=== PATIENT | female | born 1945 | race Caucasian/White ===

== ENCOUNTER 2017-07-15 17:43 | Inpatient (IN) | payer MEDICARE, MEDICAID ==
[~2017-07-15] VITALS: Ht 152.4 cm; Wt 70.0 kg
[2017-07-15 18:32] LABS: BASOPHILS # (AUTO) 0.04 x10^3/uL (0-0.1); BASOPHILS % (AUTO) 1 % (0-1); EOSINOPHILS # (AUTO) 0.11 x10^3/uL (0-0.4); EOSINOPHILS % (AUTO) 2 % (1-7); LYMPHOCYTES # (AUTO) 1.21 x10^3/uL (1-3.4); LYMPHOCYTES % (AUTO) 19 % (22-44); MD NO; MEAN CORPUSCULAR HEMOGLOBIN 33.2 pg (27.0-34.8); MEAN CORPUSCULAR HGB CONC 33.7 g/dL (32.4-35.8); MEAN CORPUSCULAR VOLUME 98.4 fL (80-100); MEAN PLATELET VOLUME 8.7 fL (7.4-10.4); MONOCYTES # (AUTO) 0.54 x10^3/uL (0.2-0.8); MONOCYTES % (AUTO) 8 % (2-9); NEUTROPHILS # (AUTO) 4.65 x10^3/uL (1.8-6.8); NEUTROPHILS % (AUTO) 71 % (42-75); PLATELET COUNT 156 x10^3/uL (130-400); RED BLOOD COUNT 3.57 x10^6/uL (3.82-5.3); RED CELL DISTRIBUTION WIDTH 13.7 % (9.6-15.2)
[2017-07-15 18:41] LABS: ALBUMIN 3.2 g/dL (3.4-5.0); ANION GAP 7 mmol/L (5-15); CALCIUM 8.2 mg/dL (8.5-10.1); CHLORIDE 110 mmol/L (98-107); CREATININE 0.85 mg/dL (0.55-1.02)
[2017-07-15] MEDS ORDERED: HYDROmorphone 1 MG/ML, 1ML ONE (19:24)
[2017-07-15] MEDS ORDERED: HYDROmorphone 1 MG/ML, 1ML IM ONE (19:30)
[2017-07-15] MEDS ORDERED: SODIUM CHLORIDE 0.9% 1,000 ML IV ONE (20:55)
[2017-07-15] MEDS ORDERED: SODIUM CHLORIDE FLUSH 10ML SYR IVF ONE (21:00)
[2017-07-15] MEDS: SODIUM CHLORIDE FLUSH 10ML SYR IVF SCH (21:30)
[2017-07-15] MEDS: HEPARIN 5,000 UNITS/ML, 1ML SQ SCH (21:30)
[2017-07-15] MEDS ORDERED: ONDANSETRON 2MG/ML, 2ML IVPush PRN (21:30)
[2017-07-15] MEDS ORDERED: BISACODYL 10 MG SUPP PR PRN (21:30)
[2017-07-15] MEDS ORDERED: hydrALAzine 20 MG/ML, 1ML IVPush PRN (21:30)
[2017-07-15 23:45] VITALS: BP 174/94
[2017-07-16] MEDS ORDERED: OXYcodone IR 5MG TABLET PO PRN
[2017-07-16] MEDS ORDERED: OXYcodone IR 5MG TABLET ONE (00:02)
[2017-07-16 00:32] LABS: MICROSCOPIC AUTO
[2017-07-16 00:34] LABS: CULTURE INDICATED? YES
[2017-07-16] MEDS: ACETAMINOPHEN 325 MG TABLET PO PRN ×4 (04:14→22:04)
[2017-07-16] MEDS: HEPARIN 5,000 UNITS/ML, 1ML SQ SCH ×3 (05:23→21:20)
[2017-07-16 07:55] VITALS: BP 155/92
[2017-07-16] MEDS: SODIUM CHLORIDE FLUSH 10ML SYR IVF SCH ×2 (08:06→20:42)
[2017-07-16] MEDS: OXYcodone IR 5MG TABLET PO PRN ×2 (08:06→18:02)
[2017-07-16] MEDS: SENNA/DOCUSATE TABLET PO SCH (10:38)
[2017-07-16 14:00] VITALS: BP 142/83
[2017-07-16] MEDS ORDERED: CHOL500050 PO (18:45)
[2017-07-16] MEDS ORDERED: CARB100T4 PO (18:45)
[2017-07-16] MEDS ORDERED: BUPR300T4 PO (18:45)
[2017-07-16] MEDS ORDERED: ENAL20TA PO (18:45)
[2017-07-16] MEDS ORDERED: RALO60TA12 PO (18:45)
[2017-07-16] MEDS ORDERED: LOVA10TA PO (18:45)
[2017-07-16 19:40] VITALS: BP 129/70
[2017-07-17 03:59] VITALS: BP 123/81
[2017-07-17] MEDS: HEPARIN 5,000 UNITS/ML, 1ML SQ SCH ×4 (05:30→21:06)
[2017-07-17] MEDS: SENNA/DOCUSATE TABLET PO SCH (09:00)
[2017-07-17] MEDS ORDERED: ENALAPRIL 20MG TABLET PO SCH (09:00)
[2017-07-17] MEDS: SODIUM CHLORIDE FLUSH 10ML SYR IVF SCH ×2 (09:00→21:00)
[2017-07-17 09:48] VITALS: BP 132/91
[2017-07-17 12:52] VITALS: BP 100/67
[2017-07-17] MEDS: OXYcodone IR 5MG TABLET PO PRN (16:51)
[2017-07-17 18:36] VITALS: BP 115/74
[2017-07-17] MEDS: SULFAMETH./TRIMETHOPRIM DS 800MG/160MG TABLET PO SCH (21:03)
[2017-07-17] MEDS: POLYETHYLENE GLYCOL 17 GM PACKET PO PRN (21:04)
[2017-07-18 00:55] VITALS: BP 108/69
[2017-07-18] MEDS: HEPARIN 5,000 UNITS/ML, 1ML SQ SCH ×3 (05:30→20:53)
[2017-07-18] MEDS: OXYcodone IR 5MG TABLET PO PRN ×2 (06:38→20:52)
[2017-07-18 06:40] VITALS: BP 111/67
[2017-07-18] MEDS: SODIUM CHLORIDE FLUSH 10ML SYR IVF SCH ×2 (09:00→20:58)
[2017-07-18] MEDS: SULFAMETH./TRIMETHOPRIM DS 800MG/160MG TABLET PO SCH ×2 (09:11→20:52)
[2017-07-18] MEDS: ENALAPRIL 20MG TABLET PO SCH (09:11)
[2017-07-18] MEDS: SENNA/DOCUSATE TABLET PO SCH (09:11)
[2017-07-18 14:00] VITALS: BP 110/63
[2017-07-18 18:25] VITALS: BP 104/65
[2017-07-19 00:37] VITALS: BP 124/70
[2017-07-19] MEDS: OXYcodone IR 5MG TABLET PO PRN ×2 (02:41→14:03)
[2017-07-19] MEDS: HEPARIN 5,000 UNITS/ML, 1ML SQ SCH ×3 (05:35→20:52)
[2017-07-19 08:20] VITALS: BP 107/68
[2017-07-19] MEDS: SODIUM CHLORIDE FLUSH 10ML SYR IVF SCH ×3 (09:00→20:51)
[2017-07-19] MEDS: SULFAMETH./TRIMETHOPRIM DS 800MG/160MG TABLET PO SCH ×2 (09:22→20:51)
[2017-07-19] MEDS: POLYETHYLENE GLYCOL 17 GM PACKET PO PRN (09:22)
[2017-07-19] MEDS: ENALAPRIL 20MG TABLET PO SCH (09:22)
[2017-07-19] MEDS: SENNA/DOCUSATE TABLET PO SCH (09:22)
[2017-07-19 14:01] VITALS: BP 113/68
[2017-07-20 00:47] VITALS: BP 122/78
[2017-07-20] MEDS: HEPARIN 5,000 UNITS/ML, 1ML SQ SCH ×3 (04:13→22:59)
[2017-07-20 05:51] LABS: BASOPHILS # (AUTO) 0.04 x10^3/uL (0-0.1); BASOPHILS % (AUTO) 1 % (0-1); EOSINOPHILS # (AUTO) 0.13 x10^3/uL (0-0.4); EOSINOPHILS % (AUTO) 2 % (1-7); LYMPHOCYTES # (AUTO) 1.53 x10^3/uL (1-3.4); LYMPHOCYTES % (AUTO) 28 % (22-44); MD NO; MEAN CORPUSCULAR HEMOGLOBIN 33.2 pg (27.0-34.8); MEAN CORPUSCULAR HGB CONC 33.5 g/dL (32.4-35.8); MEAN PLATELET VOLUME 8.5 fL (7.4-10.4); MONOCYTES % (AUTO) 9 % (2-9); NEUTROPHILS # (AUTO) 3.25 x10^3/uL (1.8-6.8); NEUTROPHILS % (AUTO) 60 % (42-75); PLATELET COUNT 228 x10^3/uL (130-400); RED BLOOD COUNT 3.64 x10^6/uL (3.82-5.3); RED CELL DISTRIBUTION WIDTH 13.9 % (9.6-15.2)
[2017-07-20 06:05] LABS: CHLORIDE 107 mmol/L (98-107)
[2017-07-20 06:23] LABS: ANION GAP 10 mmol/L (5-15); CALCIUM 8.4 mg/dL (8.5-10.1); CREATININE 1.18 mg/dL (0.55-1.02)
[2017-07-20 07:48] VITALS: BP 116/68
[2017-07-20] MEDS: SULFAMETH./TRIMETHOPRIM DS 800MG/160MG TABLET PO SCH (08:31)
[2017-07-20] MEDS: SODIUM CHLORIDE FLUSH 10ML SYR IVF SCH ×2 (08:32→23:02)
[2017-07-20] MEDS: ENALAPRIL 20MG TABLET PO SCH (08:33)
[2017-07-20] MEDS: SENNA/DOCUSATE TABLET PO SCH (08:34)
[2017-07-20] MEDS: OXYcodone IR 5MG TABLET PO PRN (08:37)
[2017-07-20] MEDS ORDERED: SODIUM CHLORIDE 0.9%, 250ML IVBOLUS ONE (13:00)
[2017-07-20] MEDS ORDERED: SODIUM CHLORIDE 0.9% 1,000 ML IV ONE (13:00)
[2017-07-20 13:29] VITALS: BP 99/57
[2017-07-20] MEDS: ACETAMINOPHEN 325 MG TABLET PO PRN (13:29)
[2017-07-20 19:57] VITALS: BP 105/62
[2017-07-20] MEDS ORDERED: ONDANSETRON 2MG/ML, 2ML IVPush PRN (20:00)
[2017-07-20] MEDS ORDERED: hydrALAzine 20 MG/ML, 1ML IVPush PRN (20:00)
[2017-07-20] MEDS ORDERED: BISACODYL 10 MG SUPP PR PRN (20:00)
[2017-07-21 00:50] VITALS: BP 115/64
[2017-07-21] MEDS: ACETAMINOPHEN 325 MG TABLET PO PRN ×2 (01:29→19:45)
[2017-07-21 06:12] LABS: CHLORIDE 107 mmol/L (98-107)
[2017-07-21 06:24] LABS: ANION GAP 7 mmol/L (5-15); CALCIUM 8.7 mg/dL (8.5-10.1); CREATININE 1.03 mg/dL (0.55-1.02)
[2017-07-21 07:54] VITALS: BP 112/63
[2017-07-21] MEDS: ENALAPRIL 20MG TABLET PO SCH (08:03)
[2017-07-21] MEDS: SENNA/DOCUSATE TABLET PO SCH (08:05)
[2017-07-21] MEDS: SODIUM CHLORIDE FLUSH 10ML SYR IVF SCH ×2 (08:06→19:45)
[2017-07-21] MEDS: HEPARIN 5,000 UNITS/ML, 1ML SQ SCH ×2 (10:57→23:09)
[2017-07-21 13:33] VITALS: BP 100/64
[2017-07-21] MEDS: POLYETHYLENE GLYCOL 17 GM PACKET PO PRN (19:45)
[2017-07-21 23:12] VITALS: BP 123/68
[2017-07-22 00:52] VITALS: BP 98/56
[2017-07-22] MEDS: ACETAMINOPHEN 325 MG TABLET PO PRN ×2 (03:50→22:25)
[2017-07-22] MEDS: HEPARIN 5,000 UNITS/ML, 1ML SQ SCH ×2 (06:52→16:03)
[2017-07-22 07:59] VITALS: BP 96/60
[2017-07-22] MEDS: ENALAPRIL 20MG TABLET PO SCH (09:00)
[2017-07-22] MEDS: SODIUM CHLORIDE FLUSH 10ML SYR IVF SCH ×2 (09:52→22:29)
[2017-07-22] MEDS: SENNA/DOCUSATE TABLET PO SCH (09:52)
[2017-07-22 13:24] VITALS: BP 98/66
[2017-07-22 22:00] VITALS: BP 116/74
[2017-07-23 02:33] VITALS: BP 130/75
[2017-07-23] MEDS: HEPARIN 5,000 UNITS/ML, 1ML SQ SCH ×3 (02:39→18:14)
[2017-07-23] MEDS: ACETAMINOPHEN 325 MG TABLET PO PRN ×2 (05:34→21:21)
[2017-07-23 08:07] VITALS: BP 115/72
[2017-07-23] MEDS: ENALAPRIL 20MG TABLET PO SCH (10:45)
[2017-07-23] MEDS: SENNA/DOCUSATE TABLET PO SCH (10:46)
[2017-07-23] MEDS: SODIUM CHLORIDE FLUSH 10ML SYR IVF SCH ×2 (10:47→20:45)
[2017-07-23 14:18] VITALS: BP 93/60
[2017-07-23 20:50] VITALS: BP 104/63
[2017-07-24] MEDS: HEPARIN 5,000 UNITS/ML, 1ML SQ SCH ×3 (03:40→21:00)
[2017-07-24 04:05] VITALS: BP 103/63
[2017-07-24] MEDS: ACETAMINOPHEN 325 MG TABLET PO PRN (05:16)
[2017-07-24 07:44] VITALS: BP 105/66
[2017-07-24] MEDS: ENALAPRIL 20MG TABLET PO SCH (10:48)
[2017-07-24] MEDS: SENNA/DOCUSATE TABLET PO SCH (10:48)
[2017-07-24] MEDS: SODIUM CHLORIDE FLUSH 10ML SYR IVF SCH ×2 (10:48→21:00)
[2017-07-24 12:54] VITALS: BP 96/55
[2017-07-24 19:54] VITALS: BP 100/60
[2017-07-25 02:42] VITALS: BP 128/70
[2017-07-25] MEDS: OXYcodone IR 5MG TABLET PO PRN ×2 (02:58→20:18)
[2017-07-25] MEDS: HEPARIN 5,000 UNITS/ML, 1ML SQ SCH ×3 (05:22→20:04)
[2017-07-25 06:53] VITALS: BP 122/73
[2017-07-25] MEDS: SODIUM CHLORIDE FLUSH 10ML SYR IVF SCH ×2 (09:00→20:03)
[2017-07-25] MEDS: SENNA/DOCUSATE TABLET PO SCH (09:16)
[2017-07-25] MEDS: ENALAPRIL 20MG TABLET PO SCH (09:16)
[2017-07-25 13:10] VITALS: BP 94/62
[2017-07-25 19:18] VITALS: BP 122/76
[2017-07-25] MEDS: POLYETHYLENE GLYCOL 17 GM PACKET PO PRN (20:04)
[2017-07-26 00:05] VITALS: BP 107/68
[2017-07-26] MEDS: OXYcodone IR 5MG TABLET PO PRN (04:36)
[2017-07-26] MEDS: HEPARIN 5,000 UNITS/ML, 1ML SQ SCH ×3 (04:36→21:07)
[2017-07-26 07:10] VITALS: BP 111/67
[2017-07-26] MEDS: SODIUM CHLORIDE FLUSH 10ML SYR IVF SCH ×2 (09:23→21:00)
[2017-07-26] MEDS: SENNA/DOCUSATE TABLET PO SCH (09:23)
[2017-07-26] MEDS: ENALAPRIL 20MG TABLET PO SCH (09:23)
[2017-07-26 15:00] VITALS: BP 104/65
[2017-07-26 18:28] VITALS: BP 95/59
[2017-07-27 01:12] VITALS: BP 119/75
[2017-07-27] MEDS: OXYcodone IR 5MG TABLET PO PRN ×3 (01:15→20:10)
[2017-07-27] MEDS: HEPARIN 5,000 UNITS/ML, 1ML SQ SCH ×4 (04:53→20:01)
[2017-07-27 08:10] VITALS: BP 88/51
[2017-07-27] MEDS ORDERED: SENNA/DOCUSATE TABLET PO SCH (09:00)
[2017-07-27] MEDS: ENALAPRIL 20MG TABLET PO SCH (09:00)
[2017-07-27] MEDS: SODIUM CHLORIDE FLUSH 10ML SYR IVF SCH ×2 (09:08→21:00)
[2017-07-27 13:43] VITALS: BP 122/68
[2017-07-27] MEDS ORDERED: ONDANSETRON 2MG/ML, 2ML IVPush PRN (17:00)
[2017-07-27] MEDS ORDERED: hydrALAzine 20 MG/ML, 1ML IVPush PRN (17:00)
[2017-07-27] MEDS ORDERED: BISACODYL 10 MG SUPP PR PRN (17:00)
[2017-07-27 19:13] VITALS: BP 134/74
[2017-07-28 01:15] VITALS: BP 105/72
[2017-07-28] MEDS: HEPARIN 5,000 UNITS/ML, 1ML SQ SCH ×3 (04:13→21:00)
[2017-07-28 06:08] LABS: PLATELET COUNT 209 x10^3/uL (130-400)
[2017-07-28 06:21] LABS: CHLORIDE 106 mmol/L (98-107)
[2017-07-28 06:38] LABS: ANION GAP 6 mmol/L (5-15); CALCIUM 8.3 mg/dL (8.5-10.1); CREATININE 0.77 mg/dL (0.55-1.02)
[2017-07-28 08:39] VITALS: BP 121/72
[2017-07-28] MEDS ORDERED: SENNA/DOCUSATE TABLET PO SCH (09:00)
[2017-07-28] MEDS: SODIUM CHLORIDE FLUSH 10ML SYR IVF SCH ×2 (09:25→21:00)
[2017-07-28] MEDS: ENALAPRIL 20MG TABLET PO SCH (09:25)
[2017-07-28] MEDS: SENNA/DOCUSATE TABLET PO SCH (09:26)
[2017-07-28 14:19] VITALS: BP 130/74
[2017-07-28 14:22] VITALS: BP 101/64
[2017-07-28 19:36] VITALS: BP 100/57
[2017-07-29 01:11] VITALS: BP 118/72
[2017-07-29 03:21] VITALS: BP 101/55
[2017-07-29] MEDS: HEPARIN 5,000 UNITS/ML, 1ML SQ SCH ×3 (04:42→20:53)
[2017-07-29 07:45] VITALS: BP 112/70
[2017-07-29] MEDS: SENNA/DOCUSATE TABLET PO SCH (08:20)
[2017-07-29] MEDS: AMLODIPINE 2.5 MG TABLET PO SCH (08:20)
[2017-07-29] MEDS: SODIUM CHLORIDE FLUSH 10ML SYR IVF SCH ×2 (08:26→20:53)
[2017-07-29] MEDS: OXYcodone IR 5MG TABLET PO PRN ×3 (08:42→17:47)
[2017-07-29 13:57] VITALS: BP 128/74
[2017-07-29 20:20] VITALS: BP 137/73
[2017-07-30 02:06] VITALS: BP 133/76
[2017-07-30] MEDS: HEPARIN 5,000 UNITS/ML, 1ML SQ SCH ×3 (05:00→22:34)
[2017-07-30 07:31] VITALS: BP 126/74
[2017-07-30] MEDS: SODIUM CHLORIDE FLUSH 10ML SYR IVF SCH ×2 (09:00→21:49)
[2017-07-30] MEDS: SENNA/DOCUSATE TABLET PO SCH (09:00)
[2017-07-30 11:05] VITALS: BP 111/78
[2017-07-30] MEDS: AMLODIPINE 2.5 MG TABLET PO SCH (11:08)
[2017-07-30] MEDS: ACETAMINOPHEN 325 MG TABLET PO PRN (11:18)
[2017-07-30 14:24] VITALS: BP 115/68
[2017-07-30 18:38] VITALS: BP 137/76
[2017-07-31] MEDS: OXYcodone IR 5MG TABLET PO PRN ×3 (00:18→21:34)
[2017-07-31 00:26] VITALS: BP 131/82
[2017-07-31] MEDS: HEPARIN 5,000 UNITS/ML, 1ML SQ SCH ×3 (04:45→21:38)
[2017-07-31 07:15] VITALS: BP 120/69
[2017-07-31] MEDS: SODIUM CHLORIDE FLUSH 10ML SYR IVF SCH ×2 (09:00→21:39)
[2017-07-31] MEDS: SENNA/DOCUSATE TABLET PO SCH (11:15)
[2017-07-31] MEDS: AMLODIPINE 2.5 MG TABLET PO SCH (11:15)
[2017-07-31 14:06] VITALS: BP 122/76
[2017-07-31] MEDS: POLYETHYLENE GLYCOL 17 GM PACKET PO PRN (14:41)
[2017-07-31 18:35] VITALS: BP 120/71
[2017-08-01 00:10] VITALS: BP 113/71
[2017-08-01] MEDS: HEPARIN 5,000 UNITS/ML, 1ML SQ SCH ×3 (04:58→21:44)
[2017-08-01 08:39] VITALS: BP 121/73
[2017-08-01] MEDS: SODIUM CHLORIDE FLUSH 10ML SYR IVF SCH ×2 (09:46→21:43)
[2017-08-01] MEDS: SENNA/DOCUSATE TABLET PO SCH (09:50)
[2017-08-01] MEDS: AMLODIPINE 2.5 MG TABLET PO SCH (09:50)
[2017-08-01] MEDS: POLYETHYLENE GLYCOL 17 GM PACKET PO PRN (10:58)
[2017-08-01] MEDS: OXYcodone IR 5MG TABLET PO PRN (13:37)
[2017-08-01 13:54] VITALS: BP 110/71
[2017-08-01 18:56] VITALS: BP 118/71
[2017-08-02 00:52] VITALS: BP 125/77
[2017-08-02] MEDS: HEPARIN 5,000 UNITS/ML, 1ML SQ SCH ×3 (06:18→21:00)
[2017-08-02 08:30] VITALS: BP 106/71
[2017-08-02] MEDS: SODIUM CHLORIDE FLUSH 10ML SYR IVF SCH ×2 (09:00→21:00)
[2017-08-02] MEDS: AMLODIPINE 2.5 MG TABLET PO SCH (09:00)
[2017-08-02] MEDS: SENNA/DOCUSATE TABLET PO SCH (11:37)
[2017-08-02 12:55] VITALS: BP 103/67
[2017-08-02 19:41] VITALS: BP 135/82
[2017-08-03 04:17] VITALS: BP 104/68
[2017-08-03] MEDS: HEPARIN 5,000 UNITS/ML, 1ML SQ SCH ×3 (04:22→20:57)
[2017-08-03 04:55] LABS: BASOPHILS # (AUTO) 0.05 x10^3/uL (0-0.1); BASOPHILS % (AUTO) 1 % (0-1); EOSINOPHILS # (AUTO) 0.15 x10^3/uL (0-0.4); EOSINOPHILS % (AUTO) 4 % (1-7); LYMPHOCYTES # (AUTO) 1.26 x10^3/uL (1-3.4); LYMPHOCYTES % (AUTO) 35 % (22-44); MD NO; MEAN CORPUSCULAR HEMOGLOBIN 33.5 pg (27.0-34.8); MEAN CORPUSCULAR HGB CONC 33.9 g/dL (32.4-35.8); MEAN CORPUSCULAR VOLUME 98.8 fL (80-100); MEAN PLATELET VOLUME 8.5 fL (7.4-10.4); MONOCYTES # (AUTO) 0.46 x10^3/uL (0.2-0.8); MONOCYTES % (AUTO) 13 % (2-9); NEUTROPHILS % (AUTO) 47 % (42-75); PLATELET COUNT 232 x10^3/uL (130-400); RED BLOOD COUNT 3.34 x10^6/uL (3.82-5.3); RED CELL DISTRIBUTION WIDTH 13.9 % (9.6-15.2)
[2017-08-03 05:08] LABS: ANION GAP 7 mmol/L (5-15); CALCIUM 8.6 mg/dL (8.5-10.1); CHLORIDE 109 mmol/L (98-107)
[2017-08-03 05:10] LABS: CREATININE 0.78 mg/dL (0.55-1.02)
[2017-08-03] MEDS: SODIUM CHLORIDE FLUSH 10ML SYR IVF SCH ×2 (09:00→20:44)
[2017-08-03 09:04] VITALS: BP 113/68
[2017-08-03] MEDS: SENNA/DOCUSATE TABLET PO SCH (09:13)
[2017-08-03] MEDS: AMLODIPINE 2.5 MG TABLET PO SCH (09:13)
[2017-08-03 14:51] VITALS: BP 112/70
[2017-08-03 20:34] VITALS: BP 111/71
[2017-08-03] MEDS: ACETAMINOPHEN 325 MG TABLET PO PRN (20:44)
[2017-08-03] MEDS: POLYETHYLENE GLYCOL 17 GM PACKET PO PRN (20:44)
[2017-08-04] MEDS: ACETAMINOPHEN 325 MG TABLET PO PRN (02:13)
[2017-08-04 02:44] VITALS: BP 108/68
[2017-08-04] MEDS: HEPARIN 5,000 UNITS/ML, 1ML SQ SCH ×3 (05:28→21:25)
[2017-08-04 06:40] VITALS: BP 121/74
[2017-08-04] MEDS: SODIUM CHLORIDE FLUSH 10ML SYR IVF SCH ×2 (09:00→21:00)
[2017-08-04] MEDS: AMLODIPINE 2.5 MG TABLET PO SCH (09:25)
[2017-08-04] MEDS: SENNA/DOCUSATE TABLET PO SCH (09:26)
[2017-08-04 13:28] VITALS: BP 124/74
[2017-08-04 19:26] VITALS: BP 129/74
[2017-08-05 00:18] VITALS: BP 125/73
[2017-08-05] MEDS ORDERED: PNEUMOCOCCAL 23 VACCINE IM-VACC ONE (03:30)
[2017-08-05] MEDS: HEPARIN 5,000 UNITS/ML, 1ML SQ SCH ×3 (05:27→20:58)
[2017-08-05] MEDS: OXYcodone IR 5MG TABLET PO PRN ×2 (08:31→14:47)
[2017-08-05] MEDS: AMLODIPINE 2.5 MG TABLET PO SCH (08:31)
[2017-08-05] MEDS: SENNA/DOCUSATE TABLET PO SCH (08:31)
[2017-08-05] MEDS: SODIUM CHLORIDE FLUSH 10ML SYR IVF SCH (08:32)
[2017-08-05 08:51] VITALS: BP 143/81
[2017-08-05 14:52] VITALS: BP 119/74
[2017-08-05 19:36] VITALS: BP 123/71
[2017-08-06 00:41] VITALS: BP 113/69
[2017-08-06] MEDS: HEPARIN 5,000 UNITS/ML, 1ML SQ SCH ×3 (05:00→21:00)
[2017-08-06 07:45] VITALS: BP 126/72
[2017-08-06] MEDS: SENNA/DOCUSATE TABLET PO SCH (09:22)
[2017-08-06] MEDS: AMLODIPINE 2.5 MG TABLET PO SCH (09:22)
[2017-08-06 13:52] VITALS: BP 120/74
[2017-08-06 19:44] VITALS: BP 115/73
[2017-08-07 02:25] VITALS: BP 110/66
[2017-08-07] MEDS: HEPARIN 5,000 UNITS/ML, 1ML SQ SCH ×3 (05:00→23:13)
[2017-08-07 05:34] LABS: BASOPHILS # (AUTO) 0.03 x10^3/uL (0-0.1); BASOPHILS % (AUTO) 1 % (0-1); EOSINOPHILS # (AUTO) 0.15 x10^3/uL (0-0.4); EOSINOPHILS % (AUTO) 4 % (1-7); LYMPHOCYTES # (AUTO) 1.23 x10^3/uL (1-3.4); LYMPHOCYTES % (AUTO) 32 % (22-44); MD NO; MEAN CORPUSCULAR HEMOGLOBIN 33.3 pg (27.0-34.8); MEAN CORPUSCULAR HGB CONC 33.9 g/dL (32.4-35.8); MEAN CORPUSCULAR VOLUME 98.4 fL (80-100); MEAN PLATELET VOLUME 8.8 fL (7.4-10.4); MONOCYTES # (AUTO) 0.56 x10^3/uL (0.2-0.8); MONOCYTES % (AUTO) 14 % (2-9); NEUTROPHILS # (AUTO) 1.88 x10^3/uL (1.8-6.8); NEUTROPHILS % (AUTO) 49 % (42-75); PLATELET COUNT 191 x10^3/uL (130-400); RED BLOOD COUNT 3.38 x10^6/uL (3.82-5.3)
[2017-08-07 05:46] LABS: ANION GAP 7 mmol/L (5-15); CALCIUM 8.2 mg/dL (8.5-10.1); CHLORIDE 108 mmol/L (98-107)
[2017-08-07 05:48] LABS: CREATININE 0.67 mg/dL (0.55-1.02)
[2017-08-07 07:31] VITALS: BP 132/85
[2017-08-07] MEDS: AMLODIPINE 2.5 MG TABLET PO SCH (09:13)
[2017-08-07] MEDS: SENNA/DOCUSATE TABLET PO SCH (09:13)
[2017-08-07 13:34] VITALS: BP 129/78
[2017-08-07 20:00] VITALS: BP 106/68
[2017-08-08 01:50] VITALS: BP 116/88
[2017-08-08 05:26] LABS: BASOPHILS # (AUTO) 0.03 x10^3/uL (0-0.1); BASOPHILS % (AUTO) 1 % (0-1); EOSINOPHILS # (AUTO) 0.18 x10^3/uL (0-0.4); EOSINOPHILS % (AUTO) 5 % (1-7); LYMPHOCYTES # (AUTO) 1.46 x10^3/uL (1-3.4); LYMPHOCYTES % (AUTO) 36 % (22-44); MD NO; MEAN CORPUSCULAR HEMOGLOBIN 33.3 pg (27.0-34.8); MEAN CORPUSCULAR HGB CONC 33.7 g/dL (32.4-35.8); MEAN CORPUSCULAR VOLUME 98.7 fL (80-100); MEAN PLATELET VOLUME 8.8 fL (7.4-10.4); MONOCYTES # (AUTO) 0.56 x10^3/uL (0.2-0.8); MONOCYTES % (AUTO) 14 % (2-9); NEUTROPHILS # (AUTO) 1.86 x10^3/uL (1.8-6.8); NEUTROPHILS % (AUTO) 46 % (42-75); PLATELET COUNT 206 x10^3/uL (130-400); RED BLOOD COUNT 3.38 x10^6/uL (3.82-5.3)
[2017-08-08 05:34] LABS: ALBUMIN 3.1 g/dL (3.4-5.0); ANION GAP 7 mmol/L (5-15); CALCIUM 8.2 mg/dL (8.5-10.1); CHLORIDE 109 mmol/L (98-107); CREATININE 0.71 mg/dL (0.55-1.02)
[2017-08-08 06:56] VITALS: BP 132/76
[2017-08-08] MEDS: HEPARIN 5,000 UNITS/ML, 1ML SQ SCH ×3 (07:00→23:00)
[2017-08-08] MEDS: SENNA/DOCUSATE TABLET PO SCH (08:23)
[2017-08-08] MEDS: AMLODIPINE 2.5 MG TABLET PO SCH (08:23)
[2017-08-08 14:02] VITALS: BP 131/82
[2017-08-08 19:52] VITALS: BP 119/74
[2017-08-09 01:30] VITALS: BP 113/71
[2017-08-09] MEDS: OXYcodone IR 5MG TABLET PO PRN (01:56)
[2017-08-09] MEDS: POLYETHYLENE GLYCOL 17 GM PACKET PO PRN (01:59)
[2017-08-09] MEDS: HEPARIN 5,000 UNITS/ML, 1ML SQ SCH ×3 (07:00→23:15)
[2017-08-09 07:03] VITALS: BP 138/82
[2017-08-09] MEDS: AMLODIPINE 2.5 MG TABLET PO SCH (08:36)
[2017-08-09] MEDS: SENNA/DOCUSATE TABLET PO SCH (08:37)
[2017-08-09 13:01] VITALS: BP 117/72
[2017-08-09 19:37] VITALS: BP 125/75
[2017-08-10 02:01] VITALS: BP 114/77
[2017-08-10 07:37] VITALS: BP 121/79
[2017-08-10] MEDS: HEPARIN 5,000 UNITS/ML, 1ML SQ SCH ×3 (09:39→23:00)
[2017-08-10] MEDS: AMLODIPINE 2.5 MG TABLET PO SCH (09:40)
[2017-08-10] MEDS: SENNA/DOCUSATE TABLET PO SCH (09:40)
[2017-08-10 14:15] VITALS: BP 122/65
[2017-08-10] MEDS ORDERED: POLYETHYLENE GLYCOL 17 GM PACKET PO PRN (19:30)
[2017-08-10] MEDS ORDERED: BISACODYL 10 MG SUPP PR PRN (19:30)
[2017-08-10] MEDS ORDERED: hydrALAzine 20 MG/ML, 1ML IVPush PRN (19:30)
[2017-08-10] MEDS ORDERED: ACETAMINOPHEN 325 MG TABLET PO PRN (19:30)
[2017-08-10] MEDS ORDERED: ONDANSETRON 2MG/ML, 2ML IVPush PRN (19:30)
[2017-08-10 19:41] VITALS: BP 126/77
[2017-08-11 01:55] VITALS: BP 122/75
[2017-08-11] MEDS: HEPARIN 5,000 UNITS/ML, 1ML SQ SCH ×3 (07:00→23:00)
[2017-08-11] MEDS: AMLODIPINE 2.5 MG TABLET PO SCH (08:52)
[2017-08-11 08:53] VITALS: BP 117/72
[2017-08-11] MEDS: SENNA/DOCUSATE TABLET PO SCH (08:53)
[2017-08-11 14:31] VITALS: BP 127/70
[2017-08-11 19:34] VITALS: BP 114/75
[2017-08-11] MEDS: OXYcodone IR 5MG TABLET PO PRN (20:49)
[2017-08-12 04:00] VITALS: BP 111/71
[2017-08-12 06:15] LABS: BASOPHILS # (AUTO) 0.04 x10^3/uL (0-0.1); BASOPHILS % (AUTO) 1 % (0-1); CHLORIDE 108 mmol/L (98-107); EOSINOPHILS # (AUTO) 0.18 x10^3/uL (0-0.4); EOSINOPHILS % (AUTO) 4 % (1-7); LYMPHOCYTES # (AUTO) 1.68 x10^3/uL (1-3.4); LYMPHOCYTES % (AUTO) 39 % (22-44); MD NO; MEAN CORPUSCULAR HEMOGLOBIN 33.3 pg (27.0-34.8); MEAN CORPUSCULAR HGB CONC 33.9 g/dL (32.4-35.8); MEAN CORPUSCULAR VOLUME 98.4 fL (80-100); MEAN PLATELET VOLUME 8.8 fL (7.4-10.4); MONOCYTES # (AUTO) 0.46 x10^3/uL (0.2-0.8); MONOCYTES % (AUTO) 11 % (2-9); NEUTROPHILS # (AUTO) 1.94 x10^3/uL (1.8-6.8); NEUTROPHILS % (AUTO) 45 % (42-75); PLATELET COUNT 183 x10^3/uL (130-400); RED BLOOD COUNT 3.45 x10^6/uL (3.82-5.3); RED CELL DISTRIBUTION WIDTH 13.6 % (9.6-15.2)
[2017-08-12 06:23] LABS: ALBUMIN 3.2 g/dL (3.4-5.0); ANION GAP 10 mmol/L (5-15); CALCIUM 8.7 mg/dL (8.5-10.1); CREATININE 0.73 mg/dL (0.55-1.02)
[2017-08-12] MEDS: HEPARIN 5,000 UNITS/ML, 1ML SQ SCH ×3 (07:00→20:37)
[2017-08-12 08:28] VITALS: BP 111/73
[2017-08-12] MEDS: AMLODIPINE 2.5 MG TABLET PO SCH (09:52)
[2017-08-12] MEDS: SENNA/DOCUSATE TABLET PO SCH (09:55)
[2017-08-12 13:13] VITALS: BP 124/83
[2017-08-12 18:58] VITALS: BP 139/82
[2017-08-12] MEDS: OXYcodone IR 5MG TABLET PO PRN (20:37)
[2017-08-13 01:55] VITALS: BP 123/75
[2017-08-13] MEDS: HEPARIN 5,000 UNITS/ML, 1ML SQ SCH ×4 (05:00→21:36)
[2017-08-13 07:59] VITALS: BP 133/86
[2017-08-13] MEDS: AMLODIPINE 2.5 MG TABLET PO SCH (09:20)
[2017-08-13] MEDS: SENNA/DOCUSATE TABLET PO SCH (09:21)
[2017-08-13] MEDS: OXYcodone IR 5MG TABLET PO PRN ×2 (13:12→21:28)
[2017-08-13 15:11] VITALS: BP 115/69
[2017-08-13 19:55] VITALS: BP 117/80
[2017-08-14 00:10] VITALS: BP 114/68
[2017-08-14] MEDS: HEPARIN 5,000 UNITS/ML, 1ML SQ SCH ×3 (05:42→21:16)
[2017-08-14] MEDS: OXYcodone IR 5MG TABLET PO PRN (06:55)
[2017-08-14 07:31] VITALS: BP 121/76
[2017-08-14] MEDS: AMLODIPINE 2.5 MG TABLET PO SCH (10:50)
[2017-08-14] MEDS: SENNA/DOCUSATE TABLET PO SCH (10:50)
[2017-08-14 15:26] VITALS: BP 114/75
[2017-08-14 18:35] VITALS: BP 147/88
[2017-08-14] MEDS: RISPERIDONE 0.5 MG TABLET PO SCH (21:17)
[2017-08-15 03:40] VITALS: BP 113/71
[2017-08-15] MEDS: HEPARIN 5,000 UNITS/ML, 1ML SQ SCH ×3 (04:45→21:41)
[2017-08-15 07:40] VITALS: BP 132/74
[2017-08-15] MEDS: AMLODIPINE 2.5 MG TABLET PO SCH (09:24)
[2017-08-15] MEDS: SENNA/DOCUSATE TABLET PO SCH (09:24)
[2017-08-15 10:23] LABS: MICROSCOPIC AUTO
[2017-08-15 10:24] LABS: CULTURE INDICATED? YES
[2017-08-15 13:30] VITALS: BP 126/71
[2017-08-15 19:39] VITALS: BP 138/73
[2017-08-15] MEDS: RISPERIDONE 0.5 MG TABLET PO SCH (21:41)
[2017-08-15] MEDS: OXYcodone IR 5MG TABLET PO PRN (21:43)
[2017-08-16 03:51] VITALS: BP 121/77
[2017-08-16] MEDS: HEPARIN 5,000 UNITS/ML, 1ML SQ SCH ×4 (05:00→21:30)
[2017-08-16 06:39] VITALS: BP 118/69
[2017-08-16] MEDS: SENNA/DOCUSATE TABLET PO SCH (08:27)
[2017-08-16] MEDS: AMLODIPINE 2.5 MG TABLET PO SCH (08:27)
[2017-08-16 12:22] VITALS: BP 118/64
[2017-08-16 18:42] VITALS: BP 133/82
[2017-08-16] MEDS: RISPERIDONE 0.5 MG TABLET PO SCH (21:23)
[2017-08-16] MEDS: OXYcodone IR 5MG TABLET PO PRN (21:27)
[2017-08-17 02:37] VITALS: BP 143/83
[2017-08-17] MEDS: HEPARIN 5,000 UNITS/ML, 1ML SQ SCH ×3 (04:53→19:32)
[2017-08-17] MEDS: AMLODIPINE 2.5 MG TABLET PO SCH ×2 (07:56→07:58)
[2017-08-17] MEDS: SENNA/DOCUSATE TABLET PO SCH ×2 (07:57→07:58)
[2017-08-17 08:35] VITALS: BP 128/81
[2017-08-17 14:52] VITALS: BP 121/74
[2017-08-17] MEDS ORDERED: ONDANSETRON 2MG/ML, 2ML IVPush PRN (15:30)
[2017-08-17] MEDS ORDERED: ACETAMINOPHEN 325 MG TABLET PO PRN (15:30)
[2017-08-17] MEDS ORDERED: POLYETHYLENE GLYCOL 17 GM PACKET PO PRN (15:30)
[2017-08-17] MEDS ORDERED: BISACODYL 10 MG SUPP PR PRN (15:30)
[2017-08-17] MEDS ORDERED: hydrALAzine 20 MG/ML, 1ML IVPush PRN (15:30)
[2017-08-17] MEDS: RISPERIDONE 0.5 MG TABLET PO SCH (19:26)
[2017-08-17 20:00] VITALS: BP 117/63
[2017-08-18 02:00] VITALS: BP 123/72
[2017-08-18] MEDS: HEPARIN 5,000 UNITS/ML, 1ML SQ SCH ×4 (04:22→21:16)
[2017-08-18 07:02] VITALS: BP 116/65
[2017-08-18] MEDS: SENNA/DOCUSATE TABLET PO SCH (09:00)
[2017-08-18] MEDS: AMLODIPINE 2.5 MG TABLET PO SCH (09:00)
[2017-08-18] MEDS ORDERED: FLU VACC QS2017-18 (36MOS+) UP/PF 0.5 ML IM-VACC ONE (11:30)
[2017-08-18 13:28] VITALS: BP 122/72
[2017-08-18 19:52] VITALS: BP 101/64
[2017-08-18] MEDS: RISPERIDONE 1 MG TABLET PO SCH (21:16)
[2017-08-19 00:48] VITALS: BP 104/69
[2017-08-19] MEDS: HEPARIN 5,000 UNITS/ML, 1ML SQ SCH ×3 (05:00→20:33)
[2017-08-19 07:24] VITALS: BP 114/71
[2017-08-19] MEDS: SENNA/DOCUSATE TABLET PO SCH (08:56)
[2017-08-19] MEDS: AMLODIPINE 2.5 MG TABLET PO SCH (08:56)
[2017-08-19] MEDS ORDERED: SENNA/DOCUSATE TABLET PO SCH (09:00)
[2017-08-19 13:20] VITALS: BP 117/71
[2017-08-19 20:01] VITALS: BP 119/79
[2017-08-19] MEDS: RISPERIDONE 1 MG TABLET PO SCH (20:33)
[2017-08-20 00:36] VITALS: BP 124/81
[2017-08-20] MEDS: HEPARIN 5,000 UNITS/ML, 1ML SQ SCH ×3 (04:46→21:00)
[2017-08-20 07:04] VITALS: BP 116/74
[2017-08-20] MEDS: SENNA/DOCUSATE TABLET PO SCH (08:52)
[2017-08-20] MEDS: AMLODIPINE 2.5 MG TABLET PO SCH (08:52)
[2017-08-20 12:56] VITALS: BP 127/79
[2017-08-20 13:58] LABS: HCT (SEDRATE) 35.8 % (34.6-47.8)
[2017-08-20 19:27] VITALS: BP 134/78
[2017-08-20] MEDS: RISPERIDONE 1 MG TABLET PO SCH (21:55)
[2017-08-21 00:43] LABS: MICROSCOPIC AUTO
[2017-08-21 04:46] VITALS: BP 128/76
[2017-08-21] MEDS: HEPARIN 5,000 UNITS/ML, 1ML SQ SCH ×3 (04:50→20:41)
[2017-08-21 06:25] LABS: BASOPHILS # (AUTO) 0.05 x10^3/uL (0-0.1); BASOPHILS % (AUTO) 1 % (0-1); EOSINOPHILS # (AUTO) 0.17 x10^3/uL (0-0.4); EOSINOPHILS % (AUTO) 4 % (1-7); LYMPHOCYTES # (AUTO) 1.44 x10^3/uL (1-3.4); LYMPHOCYTES % (AUTO) 31 % (22-44); MD NO; MEAN CORPUSCULAR HEMOGLOBIN 33.3 pg (27.0-34.8); MEAN CORPUSCULAR HGB CONC 33.7 g/dL (32.4-35.8); MEAN CORPUSCULAR VOLUME 98.7 fL (80-100); MEAN PLATELET VOLUME 8.9 fL (7.4-10.4); MONOCYTES % (AUTO) 11 % (2-9); NEUTROPHILS # (AUTO) 2.42 x10^3/uL (1.8-6.8); NEUTROPHILS % (AUTO) 53 % (42-75); PLATELET COUNT 185 x10^3/uL (130-400); RED BLOOD COUNT 3.49 x10^6/uL (3.82-5.3); RED CELL DISTRIBUTION WIDTH 13.7 % (9.6-15.2)
[2017-08-21 06:36] LABS: ANION GAP 5 mmol/L (5-15); CALCIUM 8.9 mg/dL (8.5-10.1); CHLORIDE 107 mmol/L (98-107); CREATININE 0.73 mg/dL (0.55-1.02)
[2017-08-21 07:04] VITALS: BP 128/76
[2017-08-21] MEDS: SENNA/DOCUSATE TABLET PO SCH (09:35)
[2017-08-21] MEDS: AMLODIPINE 2.5 MG TABLET PO SCH (09:35)
[2017-08-21 15:49] VITALS: BP 120/76
[2017-08-21 19:21] VITALS: BP 102/63
[2017-08-21] MEDS: RISPERIDONE 1 MG TABLET PO SCH ×2 (20:35→20:39)
[2017-08-22 03:11] VITALS: BP 131/79
[2017-08-22] MEDS: HEPARIN 5,000 UNITS/ML, 1ML SQ SCH ×3 (04:34→20:58)
[2017-08-22 05:51] LABS: BASOPHILS # (AUTO) 0.03 x10^3/uL (0-0.1); BASOPHILS % (AUTO) 1 % (0-1); EOSINOPHILS # (AUTO) 0.17 x10^3/uL (0-0.4); EOSINOPHILS % (AUTO) 4 % (1-7); LYMPHOCYTES # (AUTO) 1.57 x10^3/uL (1-3.4); LYMPHOCYTES % (AUTO) 32 % (22-44); MD NO; MEAN CORPUSCULAR HEMOGLOBIN 33.5 pg (27.0-34.8); MEAN CORPUSCULAR HGB CONC 33.9 g/dL (32.4-35.8); MEAN CORPUSCULAR VOLUME 98.7 fL (80-100); MEAN PLATELET VOLUME 9.1 fL (7.4-10.4); MONOCYTES # (AUTO) 0.51 x10^3/uL (0.2-0.8); MONOCYTES % (AUTO) 11 % (2-9); NEUTROPHILS # (AUTO) 2.59 x10^3/uL (1.8-6.8); NEUTROPHILS % (AUTO) 53 % (42-75); PLATELET COUNT 181 x10^3/uL (130-400); RED BLOOD COUNT 3.43 x10^6/uL (3.82-5.3); RED CELL DISTRIBUTION WIDTH 13.7 % (9.6-15.2)
[2017-08-22 06:56] VITALS: BP 118/71
[2017-08-22] MEDS: AMLODIPINE 2.5 MG TABLET PO SCH (09:10)
[2017-08-22] MEDS: SENNA/DOCUSATE TABLET PO SCH (09:10)
[2017-08-22 13:48] VITALS: BP 115/69
[2017-08-22 18:52] VITALS: BP 153/77
[2017-08-22] MEDS: RISPERIDONE 1 MG TABLET PO SCH (20:58)
[2017-08-23 00:05] VITALS: BP 117/71
[2017-08-23] MEDS: HEPARIN 5,000 UNITS/ML, 1ML SQ SCH ×3 (05:00→20:28)
[2017-08-23 06:53] VITALS: BP 123/79
[2017-08-23] MEDS: AMLODIPINE 2.5 MG TABLET PO SCH (10:28)
[2017-08-23] MEDS: SENNA/DOCUSATE TABLET PO SCH (10:28)
[2017-08-23 12:57] VITALS: BP 118/75
[2017-08-23 20:12] VITALS: BP 113/75
[2017-08-23] MEDS: RISPERIDONE 1 MG TABLET PO SCH (22:14)
[2017-08-24 01:20] VITALS: BP 109/72
[2017-08-24] MEDS: HEPARIN 5,000 UNITS/ML, 1ML SQ SCH ×3 (05:00→20:28)
[2017-08-24 07:21] VITALS: BP 128/81
[2017-08-24] MEDS: AMLODIPINE 2.5 MG TABLET PO SCH (08:18)
[2017-08-24] MEDS: SENNA/DOCUSATE TABLET PO SCH (08:18)
[2017-08-24 13:47] VITALS: BP 143/78
[2017-08-24] MEDS ORDERED: ONDANSETRON 2MG/ML, 2ML IVPush PRN (16:30)
[2017-08-24] MEDS ORDERED: hydrALAzine 20 MG/ML, 1ML IVPush PRN (16:30)
[2017-08-24 19:20] VITALS: BP 129/84
[2017-08-24] MEDS: RISPERIDONE 1 MG TABLET PO SCH (20:28)
[2017-08-25 00:21] VITALS: BP 125/78
[2017-08-25] MEDS: HEPARIN 5,000 UNITS/ML, 1ML SQ SCH ×3 (05:08→21:59)
[2017-08-25 07:16] VITALS: BP 130/75
[2017-08-25] MEDS: SENNA/DOCUSATE TABLET PO SCH (09:11)
[2017-08-25] MEDS: AMLODIPINE 2.5 MG TABLET PO SCH (09:11)
[2017-08-25] MEDS: POLYETHYLENE GLYCOL 17 GM PACKET PO PRN (09:11)
[2017-08-25 13:40] VITALS: BP 106/71
[2017-08-25 19:31] VITALS: BP 146/86
[2017-08-25] MEDS: RISPERIDONE 1 MG TABLET PO SCH (21:59)
[2017-08-26 01:59] VITALS: BP 112/71
[2017-08-26] MEDS: HEPARIN 5,000 UNITS/ML, 1ML SQ SCH ×3 (04:53→22:20)
[2017-08-26 07:43] VITALS: BP 114/73
[2017-08-26] MEDS: AMLODIPINE 2.5 MG TABLET PO SCH (09:45)
[2017-08-26] MEDS: SENNA/DOCUSATE TABLET PO SCH (09:45)
[2017-08-26 16:49] VITALS: BP 99/60
[2017-08-26 19:05] VITALS: BP 115/67
[2017-08-26] MEDS: RISPERIDONE 1 MG TABLET PO SCH (19:47)
[2017-08-27 02:19] VITALS: BP 112/77
[2017-08-27] MEDS: HEPARIN 5,000 UNITS/ML, 1ML SQ SCH ×3 (05:00→20:59)
[2017-08-27 08:02] VITALS: BP 118/73
[2017-08-27] MEDS: AMLODIPINE 2.5 MG TABLET PO SCH (10:09)
[2017-08-27] MEDS: SENNA/DOCUSATE TABLET PO SCH (10:09)
[2017-08-27] MEDS: BISACODYL 10 MG SUPP PR PRN (10:10)
[2017-08-27] MEDS: OXYcodone IR 5MG TABLET PO PRN ×2 (12:02→20:58)
[2017-08-27 14:05] VITALS: BP 112/69
[2017-08-27 18:49] VITALS: BP 115/75
[2017-08-27] MEDS: RISPERIDONE 1 MG TABLET PO SCH (20:58)
[2017-08-28 02:06] VITALS: BP 107/68
[2017-08-28] MEDS: HEPARIN 5,000 UNITS/ML, 1ML SQ SCH ×4 (05:00→21:00)
[2017-08-28 09:21] VITALS: BP 120/75
[2017-08-28] MEDS: SENNA/DOCUSATE TABLET PO SCH (09:46)
[2017-08-28] MEDS: AMLODIPINE 2.5 MG TABLET PO SCH (09:46)
[2017-08-28 13:03] VITALS: BP 101/70
[2017-08-28 19:22] VITALS: BP 118/74
[2017-08-28] MEDS: RISPERIDONE 1 MG TABLET PO SCH (21:00)
[2017-08-29 00:31] VITALS: BP 120/79
[2017-08-29 07:13] VITALS: BP 108/69
[2017-08-29] MEDS: HEPARIN 5,000 UNITS/ML, 1ML SQ SCH ×3 (08:38→23:11)
[2017-08-29] MEDS: SENNA/DOCUSATE TABLET PO SCH (08:39)
[2017-08-29] MEDS: AMLODIPINE 2.5 MG TABLET PO SCH (08:39)
[2017-08-29 13:27] VITALS: BP 120/78
[2017-08-29 18:32] VITALS: BP 133/81
[2017-08-29] MEDS: ACETAMINOPHEN 325 MG TABLET PO PRN (21:12)
[2017-08-29] MEDS: RISPERIDONE 1 MG TABLET PO SCH (21:12)
[2017-08-30 00:27] VITALS: BP 100/65
[2017-08-30] MEDS: HEPARIN 5,000 UNITS/ML, 1ML SQ SCH ×3 (07:00→21:06)
[2017-08-30 08:03] VITALS: BP 96/60
[2017-08-30] MEDS: AMLODIPINE 2.5 MG TABLET PO SCH (08:12)
[2017-08-30] MEDS: SENNA/DOCUSATE TABLET PO SCH (08:12)
[2017-08-30 13:09] VITALS: BP 110/67
[2017-08-30] MEDS: POLYETHYLENE GLYCOL 17 GM PACKET PO PRN (15:54)
[2017-08-30 18:19] VITALS: BP 117/73
[2017-08-30] MEDS: RISPERIDONE 1 MG TABLET PO SCH (21:07)
[2017-08-31 01:10] VITALS: BP 129/75
[2017-08-31 07:56] VITALS: BP 127/74
[2017-08-31] MEDS: SENNA/DOCUSATE TABLET PO SCH (08:11)
[2017-08-31] MEDS: AMLODIPINE 2.5 MG TABLET PO SCH (08:11)
[2017-08-31] MEDS: HEPARIN 5,000 UNITS/ML, 1ML SQ SCH ×3 (08:11→22:36)
[2017-08-31 12:46] VITALS: BP 114/72
[2017-08-31 19:21] VITALS: BP 138/84
[2017-08-31] MEDS: RISPERIDONE 1 MG TABLET PO SCH (19:45)
[2017-08-31] MEDS ORDERED: ONDANSETRON 2MG/ML, 2ML IVPush PRN (22:30)
[2017-08-31] MEDS ORDERED: hydrALAzine 20 MG/ML, 1ML IVPush PRN (22:30)
[2017-09-01 00:19] VITALS: BP 122/80
[2017-09-01 07:07] VITALS: BP 124/72
[2017-09-01] MEDS: HEPARIN 5,000 UNITS/ML, 1ML SQ SCH ×3 (07:59→22:53)
[2017-09-01] MEDS: SENNA/DOCUSATE TABLET PO SCH (07:59)
[2017-09-01] MEDS: AMLODIPINE 2.5 MG TABLET PO SCH (07:59)
[2017-09-01 12:22] VITALS: BP 115/72
[2017-09-01 19:14] VITALS: BP 111/73
[2017-09-01] MEDS: RISPERIDONE 1 MG TABLET PO SCH (21:00)
[2017-09-02 01:58] VITALS: BP 124/78
[2017-09-02 07:48] VITALS: BP 126/81
[2017-09-02] MEDS: SENNA/DOCUSATE TABLET PO SCH (07:58)
[2017-09-02] MEDS: AMLODIPINE 2.5 MG TABLET PO SCH (07:58)
[2017-09-02] MEDS: HEPARIN 5,000 UNITS/ML, 1ML SQ SCH ×2 (07:58→15:41)
[2017-09-02 13:01] VITALS: BP 114/73
[2017-09-02 19:28] VITALS: BP 110/68
[2017-09-02] MEDS: RISPERIDONE 1 MG TABLET PO SCH (21:29)
[2017-09-03] MEDS: HEPARIN 5,000 UNITS/ML, 1ML SQ SCH ×3 (00:32→15:52)
[2017-09-03 02:30] VITALS: BP 121/75
[2017-09-03] MEDS: AMLODIPINE 2.5 MG TABLET PO SCH (07:34)
[2017-09-03] MEDS: SENNA/DOCUSATE TABLET PO SCH (07:34)
[2017-09-03 07:56] VITALS: BP 118/74
[2017-09-03 13:26] VITALS: BP 114/67
[2017-09-03 19:10] VITALS: BP 120/72
[2017-09-03] MEDS: RISPERIDONE 1 MG TABLET PO SCH (20:06)
[2017-09-04 00:32] VITALS: BP 126/74
[2017-09-04] MEDS: ACETAMINOPHEN 325 MG TABLET PO PRN (02:32)
[2017-09-04 06:40] VITALS: BP 118/76
[2017-09-04] MEDS: HEPARIN 5,000 UNITS/ML, 1ML SQ SCH ×3 (08:00→17:36)
[2017-09-04] MEDS: AMLODIPINE 2.5 MG TABLET PO SCH (14:06)
[2017-09-04] MEDS: SENNA/DOCUSATE TABLET PO SCH (14:06)
[2017-09-04 14:45] VITALS: BP 118/75
[2017-09-04 19:38] VITALS: BP 108/67
[2017-09-04] MEDS: RISPERIDONE 1 MG TABLET PO SCH (21:09)
[2017-09-05] MEDS: ACETAMINOPHEN 325 MG TABLET PO PRN (00:24)
[2017-09-05] MEDS: HEPARIN 5,000 UNITS/ML, 1ML SQ SCH ×3 (00:24→16:00)
[2017-09-05 00:30] VITALS: BP 117/79
[2017-09-05 08:35] VITALS: BP 123/56
[2017-09-05] MEDS: SENNA/DOCUSATE TABLET PO SCH (09:00)
[2017-09-05] MEDS: AMLODIPINE 2.5 MG TABLET PO SCH (09:00)
[2017-09-05 13:30] VITALS: BP 120/70
[2017-09-05 19:59] VITALS: BP 118/74
[2017-09-05] MEDS: RISPERIDONE 1 MG TABLET PO SCH (21:41)
[2017-09-06 01:29] VITALS: BP 137/82
[2017-09-06 06:31] VITALS: BP 116/75
[2017-09-06] MEDS: HEPARIN 5,000 UNITS/ML, 1ML SQ SCH ×3 (08:00→16:00)
[2017-09-06] MEDS: SENNA/DOCUSATE TABLET PO SCH (09:00)
[2017-09-06] MEDS: AMLODIPINE 2.5 MG TABLET PO SCH (09:00)
[2017-09-06 16:49] VITALS: BP 133/67
[2017-09-06 18:36] VITALS: BP 134/69
[2017-09-06] MEDS: RISPERIDONE 1 MG TABLET PO SCH (21:41)
[2017-09-06] MEDS: POLYETHYLENE GLYCOL 17 GM PACKET PO PRN (22:31)
[2017-09-07] MEDS: HEPARIN 5,000 UNITS/ML, 1ML SQ SCH ×3 (00:30→16:45)
[2017-09-07 01:10] VITALS: BP 136/82
[2017-09-07 06:52] VITALS: BP 132/79
[2017-09-07] MEDS: SENNA/DOCUSATE TABLET PO SCH (08:43)
[2017-09-07] MEDS: AMLODIPINE 2.5 MG TABLET PO SCH (08:43)
[2017-09-07 14:32] VITALS: BP 111/72
[2017-09-07 19:02] VITALS: BP 116/68
[2017-09-07] MEDS: RISPERIDONE 1 MG TABLET PO SCH (19:45)
[2017-09-07] MEDS ORDERED: hydrALAzine 20 MG/ML, 1ML IVPush PRN ×2 (21:00)
[2017-09-07] MEDS ORDERED: ONDANSETRON 2MG/ML, 2ML IVPush PRN ×2 (21:00)
[2017-09-08 01:32] VITALS: BP 126/76
[2017-09-08 07:00] VITALS: BP 117/71
[2017-09-08] MEDS: AMLODIPINE 2.5 MG TABLET PO SCH (10:14)
[2017-09-08] MEDS: SENNA/DOCUSATE TABLET PO SCH (10:15)
[2017-09-08] MEDS: HEPARIN 5,000 UNITS/ML, 1ML SQ SCH ×3 (10:15→18:30)
[2017-09-08 12:57] VITALS: BP 122/75
[2017-09-08 19:41] VITALS: BP 134/77
[2017-09-08] MEDS: RISPERIDONE 1 MG TABLET PO SCH (21:19)
[2017-09-09 01:06] VITALS: BP 118/72
[2017-09-09] MEDS: SENNA/DOCUSATE TABLET PO SCH (09:14)
[2017-09-09] MEDS: AMLODIPINE 2.5 MG TABLET PO SCH (09:14)
[2017-09-09] MEDS: HEPARIN 5,000 UNITS/ML, 1ML SQ SCH ×3 (09:14→16:00)
[2017-09-09 14:53] VITALS: BP 109/70
[2017-09-09 18:50] VITALS: BP 132/82
[2017-09-09] MEDS: RISPERIDONE 1 MG TABLET PO SCH (21:29)
[2017-09-10] MEDS: HEPARIN 5,000 UNITS/ML, 1ML SQ SCH ×3 (00:50→16:00)
[2017-09-10 05:03] VITALS: BP 132/85
[2017-09-10 07:05] VITALS: BP 109/70
[2017-09-10] MEDS: SENNA/DOCUSATE TABLET PO SCH (09:40)
[2017-09-10] MEDS: AMLODIPINE 2.5 MG TABLET PO SCH (09:40)
[2017-09-10 14:00] VITALS: BP 128/79
[2017-09-10 18:27] VITALS: BP 150/80
[2017-09-10] MEDS: RISPERIDONE 1 MG TABLET PO SCH (19:28)
[2017-09-11] MEDS: HEPARIN 5,000 UNITS/ML, 1ML SQ SCH ×4 (00:36→23:13)
[2017-09-11 02:05] VITALS: BP 142/88
[2017-09-11 06:34] VITALS: BP 125/75
[2017-09-11] MEDS: AMLODIPINE 2.5 MG TABLET PO SCH (10:35)
[2017-09-11] MEDS: SENNA/DOCUSATE TABLET PO SCH (10:35)
[2017-09-11 12:58] VITALS: BP 116/70
[2017-09-11 18:27] LABS: BASOPHILS # (AUTO) 0.03 x10^3/uL (0-0.1); BASOPHILS % (AUTO) 1 % (0-1); EOSINOPHILS # (AUTO) 0.08 x10^3/uL (0-0.4); EOSINOPHILS % (AUTO) 1 % (1-7); LYMPHOCYTES # (AUTO) 1.49 x10^3/uL (1-3.4); LYMPHOCYTES % (AUTO) 25 % (22-44); MD NO; MEAN CORPUSCULAR HEMOGLOBIN 33.1 pg (27.0-34.8); MEAN CORPUSCULAR HGB CONC 33.8 g/dL (32.4-35.8); MEAN CORPUSCULAR VOLUME 97.8 fL (80-100); MEAN PLATELET VOLUME 8.2 fL (7.4-10.4); MONOCYTES # (AUTO) 0.39 x10^3/uL (0.2-0.8); MONOCYTES % (AUTO) 7 % (2-9); NEUTROPHILS # (AUTO) 3.97 x10^3/uL (1.8-6.8); NEUTROPHILS % (AUTO) 67 % (42-75); PLATELET COUNT 220 x10^3/uL (130-400); RED BLOOD COUNT 3.93 x10^6/uL (3.82-5.3); RED CELL DISTRIBUTION WIDTH 13.4 % (9.6-15.2)
[2017-09-11 18:40] LABS: ALBUMIN 3.4 g/dL (3.4-5.0); ANION GAP 6 mmol/L (5-15); CALCIUM 8.8 mg/dL (8.5-10.1); CHLORIDE 106 mmol/L (98-107)
[2017-09-11 19:07] LABS: % IRON SATURATION 22 % (20-55); ALANINE AMINOTRANSFERASE 32 U/L (12-78); ALKALINE PHOSPHATASE 83 U/L (45-117); BILIRUBIN,TOTAL 0.4 mg/dL (0.2-1.0); CREATININE 0.86 mg/dL (0.55-1.02); IRON LEVEL 86 mcg/dL (50-170); TOTAL IRON BINDING CAPACITY 393 mcg/dL (250-450); TOTAL PROTEIN 6.8 g/dL (6.4-8.2); TRANSFERRIN 314 mg/dL (200-360)
[2017-09-11 21:08] VITALS: BP 119/77
[2017-09-11] MEDS: RISPERIDONE 1 MG TABLET PO SCH (21:19)
[2017-09-12 03:00] VITALS: BP 110/71
[2017-09-12 06:36] VITALS: BP 135/80
[2017-09-12] MEDS: HEPARIN 5,000 UNITS/ML, 1ML SQ SCH ×3 (08:03→23:54)
[2017-09-12] MEDS: AMLODIPINE 2.5 MG TABLET PO SCH (08:04)
[2017-09-12] MEDS: SENNA/DOCUSATE TABLET PO SCH (08:06)
[2017-09-12 14:28] VITALS: BP 131/78
[2017-09-12] MEDS: ERGOCALCIFEROL 50,000 UNIT CAPSULE PO SCH (15:39)
[2017-09-12 19:21] VITALS: BP 120/76
[2017-09-12] MEDS: RISPERIDONE 1 MG TABLET PO SCH (21:51)
[2017-09-13 01:29] VITALS: BP 125/79
[2017-09-13 06:37] VITALS: BP 131/81
[2017-09-13] MEDS: HEPARIN 5,000 UNITS/ML, 1ML SQ SCH ×3 (07:37→20:39)
[2017-09-13] MEDS: SENNA/DOCUSATE TABLET PO SCH (07:37)
[2017-09-13] MEDS: AMLODIPINE 2.5 MG TABLET PO SCH (07:37)
[2017-09-13 12:42] VITALS: BP 115/77
[2017-09-13] MEDS: OXYcodone IR 5MG TABLET PO PRN (15:12)
[2017-09-13 19:28] VITALS: BP 144/78
[2017-09-13] MEDS: RISPERIDONE 1 MG TABLET PO SCH (20:37)
[2017-09-14 03:45] VITALS: BP 113/75
[2017-09-14 06:47] VITALS: BP 124/81
[2017-09-14] MEDS: AMLODIPINE 2.5 MG TABLET PO SCH (08:33)
[2017-09-14] MEDS: SENNA/DOCUSATE TABLET PO SCH (08:33)
[2017-09-14] MEDS: HEPARIN 5,000 UNITS/ML, 1ML SQ SCH ×3 (08:34→17:18)
[2017-09-14 13:13] VITALS: BP 114/68
[2017-09-14 18:29] VITALS: BP 111/72
[2017-09-14] MEDS: RISPERIDONE 1 MG TABLET PO SCH (21:25)
[2017-09-15] MEDS: HEPARIN 5,000 UNITS/ML, 1ML SQ SCH ×5 (00:30→21:06)
[2017-09-15 01:31] VITALS: BP 121/75
[2017-09-15 06:33] VITALS: BP 114/74
[2017-09-15] MEDS: SENNA/DOCUSATE TABLET PO SCH ×2 (09:00→09:05)
[2017-09-15] MEDS: AMLODIPINE 2.5 MG TABLET PO SCH (09:04)
[2017-09-15 12:11] VITALS: BP 117/74
[2017-09-15 18:50] VITALS: BP 122/78
[2017-09-15] MEDS: RISPERIDONE 1 MG TABLET PO SCH (21:06)
[2017-09-16 02:18] VITALS: BP 123/78
[2017-09-16 07:50] VITALS: BP 126/77
[2017-09-16] MEDS: AMLODIPINE 2.5 MG TABLET PO SCH (08:40)
[2017-09-16] MEDS: SENNA/DOCUSATE TABLET PO SCH (08:41)
[2017-09-16] MEDS: HEPARIN 5,000 UNITS/ML, 1ML SQ SCH ×2 (08:41→16:47)
[2017-09-16 13:50] VITALS: BP 115/75
[2017-09-16 19:38] VITALS: BP 123/73
[2017-09-16] MEDS: RISPERIDONE 1 MG TABLET PO SCH (20:08)
[2017-09-17] MEDS: HEPARIN 5,000 UNITS/ML, 1ML SQ SCH ×3 (01:00→16:47)
[2017-09-17 03:21] VITALS: BP 144/83
[2017-09-17 07:53] VITALS: BP 143/80
[2017-09-17] MEDS: AMLODIPINE 2.5 MG TABLET PO SCH (08:50)
[2017-09-17] MEDS: SENNA/DOCUSATE TABLET PO SCH (08:50)
[2017-09-17 13:18] VITALS: BP 140/79
[2017-09-17 19:00] VITALS: BP 131/82
[2017-09-17] MEDS: RISPERIDONE 1 MG TABLET PO SCH (20:19)
[2017-09-18] MEDS: HEPARIN 5,000 UNITS/ML, 1ML SQ SCH ×3 (01:00→18:00)
[2017-09-18 01:01] VITALS: BP 126/78
[2017-09-18 07:15] VITALS: BP 125/75
[2017-09-18] MEDS: AMLODIPINE 2.5 MG TABLET PO SCH (08:41)
[2017-09-18] MEDS: SENNA/DOCUSATE TABLET PO SCH (08:41)
[2017-09-18 13:33] VITALS: BP 104/78
[2017-09-18] MEDS: OXYcodone IR 5MG TABLET PO PRN (14:52)
[2017-09-18 18:52] VITALS: BP 133/81
[2017-09-18] MEDS: RISPERIDONE 1 MG TABLET PO SCH (21:09)
[2017-09-19] MEDS: HEPARIN 5,000 UNITS/ML, 1ML SQ SCH ×3 (01:00→17:20)
[2017-09-19 06:51] VITALS: BP 119/73
[2017-09-19] MEDS: OXYcodone IR 5MG TABLET PO PRN (08:31)
[2017-09-19] MEDS: SENNA/DOCUSATE TABLET PO SCH (08:31)
[2017-09-19] MEDS: AMLODIPINE 2.5 MG TABLET PO SCH (08:31)
[2017-09-19 13:34] VITALS: BP 122/82
[2017-09-19] MEDS: ERGOCALCIFEROL 50,000 UNIT CAPSULE PO SCH (17:20)
[2017-09-19 20:16] VITALS: BP 121/74
[2017-09-19] MEDS: RISPERIDONE 1 MG TABLET PO SCH (20:45)
[2017-09-20] MEDS: HEPARIN 5,000 UNITS/ML, 1ML SQ SCH ×3 (00:33→17:00)
[2017-09-20 01:29] VITALS: BP 120/72
[2017-09-20 07:15] VITALS: BP 111/70
[2017-09-20] MEDS: AMLODIPINE 2.5 MG TABLET PO SCH (09:58)
[2017-09-20] MEDS: SENNA/DOCUSATE TABLET PO SCH (09:58)
[2017-09-20 14:40] VITALS: BP 103/67
[2017-09-20 19:26] VITALS: BP 122/65
[2017-09-20] MEDS: RISPERIDONE 1 MG TABLET PO SCH (19:40)
[2017-09-21] MEDS: HEPARIN 5,000 UNITS/ML, 1ML SQ SCH ×3 (01:00→17:00)
[2017-09-21 01:30] VITALS: BP 118/75
[2017-09-21 07:36] VITALS: BP 111/68
[2017-09-21] MEDS: AMLODIPINE 2.5 MG TABLET PO SCH (08:16)
[2017-09-21] MEDS: SENNA/DOCUSATE TABLET PO SCH (08:16)
[2017-09-21 13:24] VITALS: BP 125/73
[2017-09-21] MEDS: RISPERIDONE 1 MG TABLET PO SCH (19:43)
[2017-09-21 20:20] VITALS: BP 146/84
[2017-09-22] MEDS: HEPARIN 5,000 UNITS/ML, 1ML SQ SCH ×3 (01:01→18:24)
[2017-09-22 02:04] VITALS: BP 126/78
[2017-09-22 07:04] VITALS: BP 126/74
[2017-09-22] MEDS: SENNA/DOCUSATE TABLET PO SCH (09:00)
[2017-09-22] MEDS: AMLODIPINE 2.5 MG TABLET PO SCH (10:27)
[2017-09-22 10:43] VITALS: BP 120/70
[2017-09-22 15:28] VITALS: BP 113/69
[2017-09-22 19:10] VITALS: BP 141/78
[2017-09-22] MEDS: RISPERIDONE 1 MG TABLET PO SCH ×2 (21:00→23:55)
[2017-09-22] MEDS: OXYcodone IR 5MG TABLET PO PRN (23:55)
[2017-09-23] MEDS: HEPARIN 5,000 UNITS/ML, 1ML SQ SCH ×3 (01:00→17:00)
[2017-09-23 01:20] VITALS: BP 131/75
[2017-09-23 01:48] LABS: MICROSCOPIC INDICATED
[2017-09-23 01:49] LABS: CULTURE INDICATED? YES
[2017-09-23 06:42] VITALS: BP 132/84
[2017-09-23] MEDS: AMLODIPINE 2.5 MG TABLET PO SCH (08:59)
[2017-09-23] MEDS: OXYcodone IR 5MG TABLET PO PRN (08:59)
[2017-09-23] MEDS: TAMSULOSIN 0.4 MG CAP.ER.24H PO SCH (08:59)
[2017-09-23] MEDS: SENNA/DOCUSATE TABLET PO SCH (08:59)
[2017-09-23 12:06] VITALS: BP 116/69
[2017-09-23 12:56] VITALS: BP 153/86
[2017-09-23] MEDS: CEFTRIAXONE PMX 1GM/50ML 50 ML IV SCH (15:38)
[2017-09-23 20:00] VITALS: BP 119/79
[2017-09-23] MEDS: RISPERIDONE 1 MG TABLET PO SCH (21:00)
[2017-09-24] MEDS: HEPARIN 5,000 UNITS/ML, 1ML SQ SCH ×3 (00:47→18:10)
[2017-09-24 04:01] VITALS: BP 119/78
[2017-09-24 06:31] VITALS: BP 122/82
[2017-09-24] MEDS: CEFTRIAXONE PMX 1GM/50ML 50 ML IV SCH (08:30)
[2017-09-24] MEDS: SENNA/DOCUSATE TABLET PO SCH (09:54)
[2017-09-24] MEDS: TAMSULOSIN 0.4 MG CAP.ER.24H PO SCH (09:54)
[2017-09-24] MEDS: AMLODIPINE 2.5 MG TABLET PO SCH (09:54)
[2017-09-24 13:59] VITALS: BP 96/61
[2017-09-24] MEDS: OXYcodone IR 5MG TABLET PO PRN (18:18)
[2017-09-24 18:48] VITALS: BP 123/73
[2017-09-24] MEDS: RISPERIDONE 1 MG TABLET PO SCH (19:53)
[2017-09-25] MEDS: HEPARIN 5,000 UNITS/ML, 1ML SQ SCH ×4 (01:00→17:12)
[2017-09-25 01:30] VITALS: BP 122/65
[2017-09-25 06:33] VITALS: BP 119/72
[2017-09-25] MEDS: AMLODIPINE 2.5 MG TABLET PO SCH ×2 (09:00→09:44)
[2017-09-25] MEDS: CEFTRIAXONE PMX 1GM/50ML 50 ML IV SCH (09:41)
[2017-09-25] MEDS: TAMSULOSIN 0.4 MG CAP.ER.24H PO SCH (09:44)
[2017-09-25] MEDS: SENNA/DOCUSATE TABLET PO SCH (09:44)
[2017-09-25 14:00] VITALS: BP 121/75
[2017-09-25 19:07] VITALS: BP 135/76
[2017-09-25] MEDS: RISPERIDONE 1 MG TABLET PO SCH (20:46)
[2017-09-25] MEDS: OXYcodone IR 5MG TABLET PO PRN (23:58)
[2017-09-26] MEDS: HEPARIN 5,000 UNITS/ML, 1ML SQ SCH ×3 (01:00→16:49)
[2017-09-26 01:25] VITALS: BP 125/80
[2017-09-26 06:37] VITALS: BP 116/76
[2017-09-26] MEDS: SENNA/DOCUSATE TABLET PO SCH (09:00)
[2017-09-26] MEDS: TAMSULOSIN 0.4 MG CAP.ER.24H PO SCH (09:23)
[2017-09-26] MEDS: AMLODIPINE 2.5 MG TABLET PO SCH (09:23)
[2017-09-26] MEDS: CEFTRIAXONE PMX 1GM/50ML 50 ML IV SCH (09:23)
[2017-09-26] MEDS: OXYcodone IR 5MG TABLET PO PRN (09:24)
[2017-09-26] MEDS: POLYETHYLENE GLYCOL 17 GM PACKET PO PRN (09:24)
[2017-09-26 13:24] VITALS: BP 127/74
[2017-09-26] MEDS: LEVOFLOXACIN/PMX 500MG/100ML 100 ML IV SCH (16:48)
[2017-09-26] MEDS: ERGOCALCIFEROL 50,000 UNIT CAPSULE PO SCH (16:49)
[2017-09-26] MEDS ORDERED: DIPHENHYDRAMINE 50 MG/ML, 1ML IVPush ONE (18:00)
[2017-09-26 19:52] VITALS: BP 145/87
[2017-09-26] MEDS: RISPERIDONE 1 MG TABLET PO SCH (21:43)
[2017-09-27] MEDS ORDERED: DIPHENHYDRAMINE 25 MG CAPSULE PO PRN (01:00)
[2017-09-27] MEDS: HEPARIN 5,000 UNITS/ML, 1ML SQ SCH ×3 (01:00→17:10)
[2017-09-27 03:55] VITALS: BP 108/74
[2017-09-27] MEDS: AMLODIPINE 2.5 MG TABLET PO SCH (09:00)
[2017-09-27 09:15] VITALS: BP 103/68
[2017-09-27] MEDS: OXYcodone IR 5MG TABLET PO PRN ×2 (11:16→17:09)
[2017-09-27] MEDS: TAMSULOSIN 0.4 MG CAP.ER.24H PO SCH (11:17)
[2017-09-27] MEDS: SENNA/DOCUSATE TABLET PO SCH (11:18)
[2017-09-27 14:05] VITALS: BP 117/75
[2017-09-27] MEDS: LEVOFLOXACIN/PMX 500MG/100ML 100 ML IV SCH (17:10)
[2017-09-27 18:28] VITALS: BP 110/74
[2017-09-27] MEDS: RISPERIDONE 1 MG TABLET PO SCH (21:23)
[2017-09-28 00:42] VITALS: BP 121/77
[2017-09-28] MEDS: HEPARIN 5,000 UNITS/ML, 1ML SQ SCH ×4 (01:00→23:59)
[2017-09-28] MEDS: ACETAMINOPHEN 325 MG TABLET PO PRN (03:04)
[2017-09-28 06:54] VITALS: BP 104/66
[2017-09-28] MEDS: AMLODIPINE 2.5 MG TABLET PO SCH (08:51)
[2017-09-28] MEDS: TAMSULOSIN 0.4 MG CAP.ER.24H PO SCH (08:51)
[2017-09-28] MEDS: SENNA/DOCUSATE TABLET PO SCH (08:51)
[2017-09-28 14:00] VITALS: BP 101/63
[2017-09-28] MEDS: LEVOFLOXACIN/PMX 500MG/100ML 100 ML IV SCH (16:26)
[2017-09-28] MEDS: BISACODYL 10 MG SUPP PR PRN (17:00)
[2017-09-28 18:35] VITALS: BP 142/85
[2017-09-28] MEDS: RISPERIDONE 1 MG TABLET PO SCH (20:05)
[2017-09-29 01:07] VITALS: BP 115/74
[2017-09-29 07:59] VITALS: BP_SYST 121; BP_SYST 92; BP_DIAS 52; BP_DIAS 76
[2017-09-29] MEDS: HEPARIN 5,000 UNITS/ML, 1ML SQ SCH ×3 (08:13→21:13)
[2017-09-29] MEDS: SENNA/DOCUSATE TABLET PO SCH (08:14)
[2017-09-29] MEDS: OXYcodone IR 5MG TABLET PO PRN ×2 (08:14→21:13)
[2017-09-29] MEDS: TAMSULOSIN 0.4 MG CAP.ER.24H PO SCH (08:14)
[2017-09-29] MEDS: AMLODIPINE 2.5 MG TABLET PO SCH (08:14)
[2017-09-29 14:00] VITALS: BP 114/76
[2017-09-29 19:00] VITALS: BP 129/80
[2017-09-29] MEDS: RISPERIDONE 1 MG TABLET PO SCH (21:13)
[2017-09-29] MEDS: LEVOFLOXACIN/PMX 500MG/100ML 100 ML IV SCH (21:14)
[2017-09-30 00:10] VITALS: BP 111/68
[2017-09-30] MEDS: OXYcodone IR 5MG TABLET PO PRN (04:23)
[2017-09-30] MEDS: HEPARIN 5,000 UNITS/ML, 1ML SQ SCH ×3 (05:39→20:37)
[2017-09-30 06:45] VITALS: BP 152/84
[2017-09-30] MEDS: POLYETHYLENE GLYCOL 17 GM PACKET PO PRN (08:25)
[2017-09-30] MEDS: SENNA/DOCUSATE TABLET PO SCH (08:25)
[2017-09-30] MEDS: TAMSULOSIN 0.4 MG CAP.ER.24H PO SCH (08:25)
[2017-09-30] MEDS: AMLODIPINE 2.5 MG TABLET PO SCH (08:25)
[2017-09-30] MEDS ORDERED: HYDROCORTISONE 25 MG SUPP PR PRN (11:30)
[2017-09-30] MEDS ORDERED: HEMORRHOIDAL SUPP.RECT PR PRN (11:30)
[2017-09-30] MEDS ORDERED: HYDROCORTISONE 25 MG SUPP PR SCH (12:44)
[2017-09-30 13:22] VITALS: BP 123/76
[2017-09-30 18:35] VITALS: BP 154/91
[2017-09-30] MEDS: RISPERIDONE 1 MG TABLET PO SCH (20:36)
[2017-09-30] MEDS: LEVOFLOXACIN/PMX 500MG/100ML 100 ML IV SCH (20:36)
[2017-09-30] MEDS: HYDROCORTISONE 25 MG SUPP PR SCH (20:36)
[2017-10-01 00:36] VITALS: BP 161/89
[2017-10-01] MEDS: OXYcodone IR 5MG TABLET PO PRN (00:40)
[2017-10-01] MEDS: HEPARIN 5,000 UNITS/ML, 1ML SQ SCH ×3 (04:51→21:10)
[2017-10-01 06:46] VITALS: BP 122/75
[2017-10-01] MEDS: SENNA/DOCUSATE TABLET PO SCH (09:10)
[2017-10-01] MEDS: TAMSULOSIN 0.4 MG CAP.ER.24H PO SCH (09:10)
[2017-10-01] MEDS: AMLODIPINE 2.5 MG TABLET PO SCH (09:15)
[2017-10-01] MEDS: HYDROCORTISONE 25 MG MC SCH ×2 (09:15→17:04)
[2017-10-01] MEDS: HYDROCORTISONE 25 MG SUPP PR SCH ×2 (12:41→21:00)
[2017-10-01 12:45] VITALS: BP 104/69
[2017-10-01 19:45] VITALS: BP 109/67
[2017-10-01] MEDS: RISPERIDONE 1 MG TABLET PO SCH (21:10)
[2017-10-02] MEDS: HYDROCORTISONE 25 MG MC SCH ×3 (00:20→17:00)
[2017-10-02 01:15] VITALS: BP 122/77
[2017-10-02] MEDS: HEPARIN 5,000 UNITS/ML, 1ML SQ SCH ×3 (05:00→21:00)
[2017-10-02 06:48] VITALS: BP 123/74
[2017-10-02] MEDS: AMLODIPINE 2.5 MG TABLET PO SCH (08:35)
[2017-10-02] MEDS: TAMSULOSIN 0.4 MG CAP.ER.24H PO SCH (08:35)
[2017-10-02] MEDS: SENNA/DOCUSATE TABLET PO SCH (08:35)
[2017-10-02] MEDS: HYDROCORTISONE 25 MG SUPP PR SCH ×3 (08:36→21:00)
[2017-10-02 12:48] VITALS: BP 110/73
[2017-10-02] MEDS: LORazepam 0.5MG TABLET PO PRN (15:20)
[2017-10-02 18:24] VITALS: BP 100/61
[2017-10-02 18:44] VITALS: BP 125/73
[2017-10-02] MEDS: BISACODYL 10 MG SUPP PR PRN (19:06)
[2017-10-02] MEDS ORDERED: PINK LADY ENEMA 1,000 ML PR ONE (21:00)
[2017-10-02] MEDS: RISPERIDONE 1 MG TABLET PO SCH (21:00)
[2017-10-02] MEDS: POLYETHYLENE GLYCOL 17 GM PACKET PO PRN (23:39)
[2017-10-03 01:00] VITALS: BP 139/78
[2017-10-03] MEDS: HYDROCORTISONE 25 MG MC SCH ×2 (01:00→09:00)
[2017-10-03] MEDS: HEPARIN 5,000 UNITS/ML, 1ML SQ SCH ×2 (04:51→13:00)
[2017-10-03 04:54] LABS: BASOPHILS # (AUTO) 0.03 x10^3/uL (0-0.1); BASOPHILS % (AUTO) 1 % (0-1); EOSINOPHILS # (AUTO) 0.07 x10^3/uL (0-0.4); EOSINOPHILS % (AUTO) 1 % (1-7); LYMPHOCYTES # (AUTO) 1.25 x10^3/uL (1-3.4); LYMPHOCYTES % (AUTO) 25 % (22-44); MD NO; MEAN CORPUSCULAR HEMOGLOBIN 33.9 pg (27.0-34.8); MEAN CORPUSCULAR HGB CONC 34.8 g/dL (32.4-35.8); MEAN CORPUSCULAR VOLUME 97.5 fL (80-100); MEAN PLATELET VOLUME 8.5 fL (7.4-10.4); MONOCYTES # (AUTO) 0.52 x10^3/uL (0.2-0.8); MONOCYTES % (AUTO) 10 % (2-9); NEUTROPHILS # (AUTO) 3.24 x10^3/uL (1.8-6.8); NEUTROPHILS % (AUTO) 64 % (42-75); PLATELET COUNT 213 x10^3/uL (130-400); RED BLOOD COUNT 3.31 x10^6/uL (3.82-5.3); RED CELL DISTRIBUTION WIDTH 13.1 % (9.6-15.2)
[2017-10-03 05:03] VITALS: BP 120/74
[2017-10-03 05:04] LABS: ANION GAP 3 mmol/L (5-15); CALCIUM 8.6 mg/dL (8.5-10.1); CHLORIDE 108 mmol/L (98-107)
[2017-10-03 05:08] LABS: ALANINE AMINOTRANSFERASE 28 U/L (12-78); ALKALINE PHOSPHATASE 62 U/L (45-117); BILIRUBIN,TOTAL 0.4 mg/dL (0.2-1.0); CREATININE 0.73 mg/dL (0.55-1.02); TOTAL PROTEIN 6.2 g/dL (6.4-8.2)
[2017-10-03 06:52] VITALS: BP 110/71
[2017-10-03] MEDS: TAMSULOSIN 0.4 MG CAP.ER.24H PO SCH (08:49)
[2017-10-03] MEDS: POLYETHYLENE GLYCOL 17 GM PACKET PO PRN (08:50)
[2017-10-03] MEDS: AMLODIPINE 2.5 MG TABLET PO SCH (08:50)
[2017-10-03] MEDS: SENNA/DOCUSATE TABLET PO SCH (08:50)
[2017-10-03] MEDS: HYDROCORTISONE 25 MG SUPP PR SCH (09:00)
[2017-10-03] MEDS ORDERED: BISACODYL 10 MG SUPP PR SCH (11:30)
[2017-10-03 12:04] VITALS: BP 107/68
[2017-10-03] MEDS ORDERED: TAMS-11 PO (12:40)
[2017-10-03] MEDS ORDERED: RISP1TAB45 PO (12:40)
[2017-10-03] MEDS ORDERED: LORA-445 PO (12:40)
[2017-10-03] MEDS ORDERED: AMLO2.5T PO (12:40)
[2017-10-03] MEDS ORDERED: POLY17PO5 PO (14:27)
[2017-10-03] MEDS ORDERED: SENN1TAB7 PO (14:27)
[2017-10-03] MEDS: LORazepam 0.5MG TABLET PO PRN (15:28)
[2017-10-03] MEDS: ERGOCALCIFEROL 50,000 UNIT CAPSULE PO SCH (15:28)
== END 2017-10-03 16:59 | DRG 884 ==
LOC: ED 20:59 → EDIP 21:00 → 4NOR 23:20 → 3NE 08-04 12:52
PROVIDERS: ADMIT Hospitalist; ATTEND Hospitalist
PROC: 3E0234Z Introduction of Serum, Toxoid and Vaccine into Muscle, Percutaneous Approach (ICD-10-PCS; principal; 2017-08-18)
DX: F01.50 Vascular dementia, unspecified severity, without behavioral disturbance, psychotic disturbance, mood disturbance, and anxiety (principal); G93.40 Encephalopathy, unspecified; N17.9 Acute kidney failure, unspecified; I31.3 Pericardial effusion (noninflammatory); E44.1 Mild protein-calorie malnutrition; F22 Delusional disorders; M41.9 Scoliosis, unspecified; N39.0 Urinary tract infection, site not specified; R44.3 Hallucinations, unspecified; Z66 Do not resuscitate; S09.90XA Unspecified injury of head, initial encounter; W19.XXXA Unspecified fall, initial encounter; D64.9 Anemia, unspecified; R29.6 Repeated falls; F32.9 Major depressive disorder, single episode, unspecified; E55.9 Vitamin D deficiency, unspecified; E87.6 Hypokalemia; F41.9 Anxiety disorder, unspecified; G47.00 Insomnia, unspecified; I10 Essential (primary) hypertension; J45.909 Unspecified asthma, uncomplicated; K59.00 Constipation, unspecified; M19.90 Unspecified osteoarthritis, unspecified site; M47.892 Other spondylosis, cervical region; M81.0 Age-related osteoporosis without current pathological fracture; S20.219A Contusion of unspecified front wall of thorax, initial encounter; M54.2 Cervicalgia; R79.89 Other specified abnormal findings of blood chemistry; F99 Mental disorder, not otherwise specified; Z68.30 Body mass index [BMI] 30.0-30.9, adult; Z79.899 Other long term (current) drug therapy; Z81.1 Family history of alcohol abuse and dependence; Z81.8 Family history of other mental and behavioral disorders; Z91.81 History of falling; Y92.009 Unspecified place in unspecified non-institutional (private) residence as the place of occurrence of the external cause; Z23 Encounter for immunization
CPT/HCPCS: 36415; 70450; 71250; 72125; 74000; 80048; 80053; 81001; 82040; 82306; 82607; 82728; 83540; 83550; 83735; 84443; 84466; 85014; 85018; 85025; 85049; 85651; 86140; 86580; 87077; 87086; 87186; 90686; 90732; 96360; 96361; 96372; J0696; J1170; J1644; J1956; 92523-GN; J1200; J7030; J7050; Q0163

== ENCOUNTER 2018-06-16 08:30 | Inpatient (IN) | payer MEDICARE, MEDICAID ==
[~2018-06-16] VITALS: Ht 162.6 cm; Wt 63.4 kg
[~2018-06-16 08:30] MED LIST: AMLO2.5T3 PO; BUPR300T4 PO; CARB100T4 PO; CHOL500050 PO; ENAL20TA PO; LORA-445 PO; LOVA10TA PO; POLY17PO5 PO; RALO60TA12 PO; RISP1TAB45 PO; SENN1TAB8 PO; TAMS-11 PO
[2018-06-16 14:06] VITALS: BP_SYST 119; BP_SYST 128; BP_DIAS 77; BP_DIAS 80
[2018-06-16 14:56] VITALS: BP 119/77
[2018-06-16] MEDS ORDERED: PLEASE ENTER HEIGHT AND WEIGHT MC SCH (15:00)
[2018-06-16 16:28] LABS: CHOL/HDL RATIO 2.1; FREE T4 (FREE THYROXINE) 0.84 ng/dL (0.76-1.46); THYROID STIMULATING HORMONE 2.18 mIU/L (0.358-3.740)
[2018-06-16] MEDS ORDERED: IBUP-1222 PO (17:33)
[2018-06-16] MEDS ORDERED: HYDR-3237 PO (17:36)
[2018-06-16] MEDS ORDERED: QUETIAPINE 25MG TABLET PO PRN (19:30)
[2018-06-16] MEDS ORDERED: QUETIAPINE 25MG TABLET PO SCH (21:00)
[2018-06-16] MEDS ORDERED: ZIPRASIDONE 20 MG INJ IM ONE ×2 (21:56→22:00)
[2018-06-17] MEDS: HYDROcodone/APAP 5/325 TABLET PO PRN ×2 (01:27→20:44)
[2018-06-17 08:46] VITALS: BP 124/82
[2018-06-17] MEDS: AMLODIPINE 2.5 MG TABLET PO SCH (10:05)
[2018-06-17] MEDS: ERGOCALCIFEROL 50,000 UNIT CAPSULE PO SCH (10:06)
[2018-06-17] MEDS: TAMSULOSIN 0.4 MG CAP.ER.24H PO SCH (10:06)
[2018-06-17 16:13] LABS: BASOPHILS # (AUTO) 0.04 x10^3/uL (0-0.1); BASOPHILS % (AUTO) 1 % (0-1); EOSINOPHILS # (AUTO) 0.11 x10^3/uL (0-0.4); EOSINOPHILS % (AUTO) 1 % (1-7); LYMPHOCYTES # (AUTO) 1.32 x10^3/uL (1-3.4); LYMPHOCYTES % (AUTO) 17 % (22-44); MD NO; MEAN CORPUSCULAR HEMOGLOBIN 32.8 pg (27.0-34.8); MEAN CORPUSCULAR HGB CONC 33.8 g/dL (32.4-35.8); MEAN CORPUSCULAR VOLUME 97.3 fL (80-100); MEAN PLATELET VOLUME 8.6 fL (7.4-10.4); MONOCYTES # (AUTO) 0.61 x10^3/uL (0.2-0.8); MONOCYTES % (AUTO) 8 % (2-9); NEUTROPHILS # (AUTO) 5.65 x10^3/uL (1.8-6.8); NEUTROPHILS % (AUTO) 73 % (42-75); PLATELET COUNT 212 x10^3/uL (130-400); RED CELL DISTRIBUTION WIDTH 13.9 % (9.6-15.2)
[2018-06-17 16:14] LABS: ALANINE AMINOTRANSFERASE 17 U/L (12-78); ALBUMIN 3.3 g/dL (3.4-5.0); ANION GAP 5 mmol/L (5-15); CALCIUM 8.1 mg/dL (8.5-10.1); CHLORIDE 108 mmol/L (98-107)
[2018-06-17 16:17] LABS: ALKALINE PHOSPHATASE 67 U/L (45-117); BILIRUBIN,TOTAL 0.2 mg/dL (0.2-1.0); CREATININE 0.81 mg/dL (0.55-1.02); TOTAL PROTEIN 6.8 g/dL (6.4-8.2)
[2018-06-17 16:45] LABS: CULTURE INDICATED? YES; MICROSCOPIC INDICATED
[2018-06-17] MEDS: LOVASTATIN 10 MG TABLET PO SCH (20:42)
[2018-06-17] MEDS ORDERED: QUETIAPINE 100MG TABLET PO SCH (21:00)
[2018-06-18 07:55] VITALS: BP 128/74
[2018-06-18] MEDS: TAMSULOSIN 0.4 MG CAP.ER.24H PO SCH (08:45)
[2018-06-18] MEDS: AMLODIPINE 2.5 MG TABLET PO SCH (08:45)
[2018-06-18] MEDS: HYDROcodone/APAP 5/325 TABLET PO PRN ×2 (09:39→16:10)
[2018-06-18 19:47] VITALS: BP 109/62
[2018-06-18] MEDS: DIVALPROEX 125 MG CAP.SPRINK PO SCH (21:10)
[2018-06-18] MEDS: LOVASTATIN 10 MG TABLET PO SCH (21:11)
[2018-06-18] MEDS: QUETIAPINE 25MG TABLET PO SCH (21:11)
[2018-06-19 07:41] VITALS: BP 118/74
[2018-06-19] MEDS: DIVALPROEX 125 MG CAP.SPRINK PO SCH ×2 (10:36→21:37)
[2018-06-19] MEDS: TAMSULOSIN 0.4 MG CAP.ER.24H PO SCH (10:36)
[2018-06-19] MEDS: HYDROcodone/APAP 5/325 TABLET PO PRN ×2 (10:36→21:37)
[2018-06-19] MEDS: AMLODIPINE 2.5 MG TABLET PO SCH (10:36)
[2018-06-19] MEDS: QUETIAPINE 25MG TABLET PO PRN (15:24)
[2018-06-19 20:19] VITALS: BP 121/67
[2018-06-19] MEDS: LOVASTATIN 10 MG TABLET PO SCH (21:37)
[2018-06-19] MEDS: QUETIAPINE 25MG TABLET PO SCH (21:38)
[2018-06-20] MEDS: DIVALPROEX 125 MG CAP.SPRINK PO SCH ×2 (08:38→20:26)
[2018-06-20] MEDS: TAMSULOSIN 0.4 MG CAP.ER.24H PO SCH (08:38)
[2018-06-20] MEDS: AMLODIPINE 2.5 MG TABLET PO SCH (08:39)
[2018-06-20 08:51] VITALS: BP 121/78
[2018-06-20] MEDS: QUETIAPINE 25MG TABLET PO PRN (14:50)
[2018-06-20] MEDS: QUETIAPINE 25MG TABLET PO SCH (20:25)
[2018-06-20] MEDS: LOVASTATIN 10 MG TABLET PO SCH (20:25)
[2018-06-20 20:27] VITALS: BP 121/78
[2018-06-21 08:00] VITALS: BP 113/70
[2018-06-21] MEDS: AMLODIPINE 2.5 MG TABLET PO SCH (09:18)
[2018-06-21] MEDS: DIVALPROEX 125 MG CAP.SPRINK PO SCH ×2 (09:18→20:26)
[2018-06-21] MEDS: TAMSULOSIN 0.4 MG CAP.ER.24H PO SCH (09:18)
[2018-06-21] MEDS: QUETIAPINE 25MG TABLET PO PRN (13:48)
[2018-06-21 19:54] VITALS: BP 95/60
[2018-06-21 20:24] VITALS: BP 96/63
[2018-06-21 20:25] VITALS: BP 110/68
[2018-06-21] MEDS: LOVASTATIN 10 MG TABLET PO SCH (20:26)
[2018-06-21] MEDS: ZIPRASIDONE 20MG CAPSULE PO SCH (20:27)
[2018-06-22 08:00] VITALS: BP 120/77
[2018-06-22] MEDS: AMLODIPINE 2.5 MG TABLET PO SCH (08:39)
[2018-06-22] MEDS: DIVALPROEX 125 MG CAP.SPRINK PO SCH ×2 (08:39→20:38)
[2018-06-22] MEDS: ZIPRASIDONE 20MG CAPSULE PO SCH ×2 (08:40→20:38)
[2018-06-22] MEDS: TAMSULOSIN 0.4 MG CAP.ER.24H PO SCH (08:40)
[2018-06-22] MEDS: HYDROcodone/APAP 5/325 TABLET PO PRN (08:40)
[2018-06-22] MEDS: QUETIAPINE 25MG TABLET PO PRN (13:20)
[2018-06-22 19:57] VITALS: BP 113/68
[2018-06-22] MEDS: LOVASTATIN 10 MG TABLET PO SCH (20:38)
[2018-06-23 07:45] VITALS: BP 153/87
[2018-06-23] MEDS: DIVALPROEX 125 MG CAP.SPRINK PO SCH ×2 (08:13→20:26)
[2018-06-23] MEDS: AMLODIPINE 2.5 MG TABLET PO SCH (08:13)
[2018-06-23] MEDS: TAMSULOSIN 0.4 MG CAP.ER.24H PO SCH (08:13)
[2018-06-23] MEDS: ZIPRASIDONE 20MG CAPSULE PO SCH ×2 (08:14→20:26)
[2018-06-23] MEDS: QUETIAPINE 25MG TABLET PO PRN (13:01)
[2018-06-23 19:38] VITALS: BP 153/81
[2018-06-23] MEDS: LOVASTATIN 10 MG TABLET PO SCH (20:26)
[2018-06-24] MEDS: HYDROcodone/APAP 5/325 TABLET PO PRN (05:57)
[2018-06-24 07:32] VITALS: BP 169/95
[2018-06-24] MEDS: ERGOCALCIFEROL 50,000 UNIT CAPSULE PO SCH (08:54)
[2018-06-24] MEDS: DIVALPROEX 125 MG CAP.SPRINK PO SCH ×2 (08:55→21:00)
[2018-06-24] MEDS: TAMSULOSIN 0.4 MG CAP.ER.24H PO SCH (08:56)
[2018-06-24] MEDS: ZIPRASIDONE 20MG CAPSULE PO SCH ×2 (08:56→21:00)
[2018-06-24] MEDS: AMLODIPINE 2.5 MG TABLET PO SCH (08:56)
[2018-06-24] MEDS: QUETIAPINE 25MG TABLET PO PRN (15:04)
[2018-06-24 20:01] VITALS: BP 139/78
[2018-06-24] MEDS: LOVASTATIN 10 MG TABLET PO SCH (21:00)
[2018-06-25] MEDS: QUETIAPINE 25MG TABLET PO PRN (02:56)
[2018-06-25] MEDS: ZIPRASIDONE 20MG CAPSULE PO SCH ×2 (09:35→21:07)
[2018-06-25] MEDS: TAMSULOSIN 0.4 MG CAP.ER.24H PO SCH (09:35)
[2018-06-25] MEDS: DIVALPROEX 125 MG CAP.SPRINK PO SCH ×2 (09:35→21:07)
[2018-06-25] MEDS: AMLODIPINE 2.5 MG TABLET PO SCH (09:36)
[2018-06-25 09:41] VITALS: BP 135/85
[2018-06-25] MEDS: HYDROcodone/APAP 5/325 TABLET PO PRN (10:06)
[2018-06-25 19:29] VITALS: BP 115/74
[2018-06-25] MEDS: LOVASTATIN 10 MG TABLET PO SCH (21:07)
[2018-06-26] MEDS: HYDROcodone/APAP 5/325 TABLET PO PRN ×2 (05:33→20:38)
[2018-06-26] MEDS: QUETIAPINE 25MG TABLET PO PRN ×2 (05:57→22:52)
[2018-06-26 07:12] VITALS: BP 125/73
[2018-06-26] MEDS: DIVALPROEX 125 MG CAP.SPRINK PO SCH ×2 (08:19→20:32)
[2018-06-26] MEDS: TAMSULOSIN 0.4 MG CAP.ER.24H PO SCH (08:19)
[2018-06-26] MEDS: AMLODIPINE 2.5 MG TABLET PO SCH (08:19)
[2018-06-26] MEDS: ZIPRASIDONE 20MG CAPSULE PO SCH ×2 (08:19→20:33)
[2018-06-26 19:30] VITALS: BP 110/72
[2018-06-26] MEDS: LOVASTATIN 10 MG TABLET PO SCH (20:33)
[2018-06-27] MEDS: HYDROcodone/APAP 5/325 TABLET PO PRN (02:43)
[2018-06-27 07:37] VITALS: BP 169/79
[2018-06-27] MEDS: DIVALPROEX 125 MG CAP.SPRINK PO SCH ×2 (08:29→20:26)
[2018-06-27] MEDS: ZIPRASIDONE 20MG CAPSULE PO SCH ×2 (08:29→20:26)
[2018-06-27] MEDS: TAMSULOSIN 0.4 MG CAP.ER.24H PO SCH (08:29)
[2018-06-27] MEDS: AMLODIPINE 2.5 MG TABLET PO SCH (08:29)
[2018-06-27] MEDS: ACETAMINOPHEN 325 MG TABLET PO PRN ×2 (10:08→18:17)
[2018-06-27 19:08] VITALS: BP 127/78
[2018-06-27] MEDS: LOVASTATIN 10 MG TABLET PO SCH (20:26)
[2018-06-28] MEDS: HYDROcodone/APAP 5/325 TABLET PO PRN ×2 (02:27→17:02)
[2018-06-28 07:30] VITALS: BP 152/85
[2018-06-28] MEDS: DIVALPROEX 125 MG CAP.SPRINK PO SCH ×3 (08:32→21:30)
[2018-06-28] MEDS: TAMSULOSIN 0.4 MG CAP.ER.24H PO SCH ×2 (08:32→09:00)
[2018-06-28] MEDS: ZIPRASIDONE 20MG CAPSULE PO SCH ×3 (08:32→21:31)
[2018-06-28] MEDS: AMLODIPINE 2.5 MG TABLET PO SCH ×2 (08:33→09:00)
[2018-06-28 19:39] VITALS: BP 133/73
[2018-06-28] MEDS: LOVASTATIN 10 MG TABLET PO SCH (21:31)
[2018-06-29 07:19] VITALS: BP 156/86
[2018-06-29] MEDS: ZIPRASIDONE 20MG CAPSULE PO SCH ×2 (08:17→20:15)
[2018-06-29] MEDS: DOCUSATE 100 MG CAPSULE PO PRN (08:17)
[2018-06-29] MEDS: DIVALPROEX 125 MG CAP.SPRINK PO SCH ×2 (08:17→20:15)
[2018-06-29] MEDS: AMLODIPINE 2.5 MG TABLET PO SCH (08:17)
[2018-06-29] MEDS: TAMSULOSIN 0.4 MG CAP.ER.24H PO SCH (08:17)
[2018-06-29] MEDS: BISACODYL 10 MG SUPP PR PRN (15:01)
[2018-06-29 19:55] VITALS: BP 137/80
[2018-06-29] MEDS: LOVASTATIN 10 MG TABLET PO SCH (20:15)
[2018-06-30 07:55] VITALS: BP 157/77
[2018-06-30] MEDS: ZIPRASIDONE 20MG CAPSULE PO SCH ×3 (09:06→21:12)
[2018-06-30] MEDS: DIVALPROEX 125 MG CAP.SPRINK PO SCH ×3 (09:06→21:11)
[2018-06-30] MEDS: AMLODIPINE 2.5 MG TABLET PO SCH (09:06)
[2018-06-30] MEDS: TAMSULOSIN 0.4 MG CAP.ER.24H PO SCH (09:06)
[2018-06-30 19:31] VITALS: BP 145/80
[2018-06-30] MEDS: LOVASTATIN 10 MG TABLET PO SCH ×2 (21:00→21:12)
[2018-07-01] MEDS ORDERED: DIAZEPAM 5 MG/ML, 2ML IM ONE (01:30)
[2018-07-01 07:33] VITALS: BP 137/79
[2018-07-01] MEDS: TAMSULOSIN 0.4 MG CAP.ER.24H PO SCH (08:14)
[2018-07-01] MEDS: DIVALPROEX 125 MG CAP.SPRINK PO SCH ×2 (08:14→20:38)
[2018-07-01] MEDS: AMLODIPINE 2.5 MG TABLET PO SCH (08:15)
[2018-07-01] MEDS: ZIPRASIDONE 20MG CAPSULE PO SCH ×2 (08:15→20:39)
[2018-07-01] MEDS: ERGOCALCIFEROL 50,000 UNIT CAPSULE PO SCH (08:17)
[2018-07-01] MEDS: QUETIAPINE 25MG TABLET PO PRN (09:46)
[2018-07-01] MEDS: LOVASTATIN 10 MG TABLET PO SCH (20:39)
[2018-07-01 21:30] VITALS: BP 113/75
[2018-07-02] MEDS: QUETIAPINE 25MG TABLET PO PRN (03:39)
[2018-07-02 07:21] VITALS: BP 118/72
[2018-07-02] MEDS: ACETAMINOPHEN 325 MG TABLET PO PRN (07:22)
[2018-07-02] MEDS: ZIPRASIDONE 20MG CAPSULE PO SCH ×2 (07:59→20:10)
[2018-07-02] MEDS: DIVALPROEX 125 MG CAP.SPRINK PO SCH ×2 (07:59→20:10)
[2018-07-02] MEDS: AMLODIPINE 2.5 MG TABLET PO SCH (07:59)
[2018-07-02] MEDS: TAMSULOSIN 0.4 MG CAP.ER.24H PO SCH (07:59)
[2018-07-02 19:50] VITALS: BP 102/66
[2018-07-02] MEDS: LOVASTATIN 10 MG TABLET PO SCH (20:09)
[2018-07-03] MEDS: QUETIAPINE 25MG TABLET PO PRN (02:57)
[2018-07-03 07:11] VITALS: BP 108/69
[2018-07-03] MEDS: ACETAMINOPHEN 325 MG TABLET PO PRN (08:00)
[2018-07-03] MEDS: AMLODIPINE 2.5 MG TABLET PO SCH (08:01)
[2018-07-03] MEDS: TAMSULOSIN 0.4 MG CAP.ER.24H PO SCH (08:01)
[2018-07-03] MEDS: DIVALPROEX 125 MG CAP.SPRINK PO SCH ×2 (08:01→21:24)
[2018-07-03] MEDS: ZIPRASIDONE 20MG CAPSULE PO SCH ×2 (08:01→21:25)
[2018-07-03] MEDS: HYDROcodone/APAP 5/325 TABLET PO PRN ×2 (11:46→23:09)
[2018-07-03 21:00] VITALS: BP 134/74
[2018-07-03] MEDS: LOVASTATIN 10 MG TABLET PO SCH (21:24)
[2018-07-03 23:01] VITALS: BP 136/76
[2018-07-04] MEDS: QUETIAPINE 25MG TABLET PO PRN ×2 (01:34→21:00)
[2018-07-04] MEDS: ACETAMINOPHEN 325 MG TABLET PO PRN (07:24)
[2018-07-04 07:49] VITALS: BP 131/73
[2018-07-04] MEDS: POLYETHYLENE GLYCOL 17 GM PACKET PO PRN (07:52)
[2018-07-04] MEDS: DOCUSATE 100 MG CAPSULE PO PRN (07:52)
[2018-07-04] MEDS: TAMSULOSIN 0.4 MG CAP.ER.24H PO SCH (08:25)
[2018-07-04] MEDS: AMLODIPINE 2.5 MG TABLET PO SCH (08:26)
[2018-07-04] MEDS: ZIPRASIDONE 20MG CAPSULE PO SCH ×3 (08:26→21:00)
[2018-07-04] MEDS: DIVALPROEX 125 MG CAP.SPRINK PO SCH ×3 (08:26→21:00)
[2018-07-04 19:26] VITALS: BP 117/75
[2018-07-04] MEDS: LOVASTATIN 10 MG TABLET PO SCH ×2 (20:43→21:00)
[2018-07-05] MEDS: DOCUSATE 100 MG CAPSULE PO PRN (07:28)
[2018-07-05] MEDS: POLYETHYLENE GLYCOL 17 GM PACKET PO PRN (07:28)
[2018-07-05] MEDS: ACETAMINOPHEN 325 MG TABLET PO PRN (07:28)
[2018-07-05 07:51] VITALS: BP 114/61
[2018-07-05] MEDS: TAMSULOSIN 0.4 MG CAP.ER.24H PO SCH (08:43)
[2018-07-05] MEDS: DIVALPROEX 125 MG CAP.SPRINK PO SCH ×3 (08:43→21:00)
[2018-07-05] MEDS: ZIPRASIDONE 20MG CAPSULE PO SCH ×4 (08:44→22:30)
[2018-07-05] MEDS: AMLODIPINE 2.5 MG TABLET PO SCH (08:48)
[2018-07-05 15:00] VITALS: BP 125/68
[2018-07-05 19:38] VITALS: BP 118/77
[2018-07-05] MEDS: LOVASTATIN 10 MG TABLET PO SCH ×4 (20:58→22:21)
[2018-07-06] MEDS: LOVASTATIN 10 MG TABLET PO SCH ×2 (00:12→21:04)
[2018-07-06] MEDS: HYDROcodone/APAP 5/325 TABLET PO PRN (02:16)
[2018-07-06 07:36] VITALS: BP 129/74
[2018-07-06] MEDS: AMLODIPINE 2.5 MG TABLET PO SCH (08:56)
[2018-07-06] MEDS: DIVALPROEX 125 MG CAP.SPRINK PO SCH ×2 (08:56→21:03)
[2018-07-06] MEDS: TAMSULOSIN 0.4 MG CAP.ER.24H PO SCH (08:56)
[2018-07-06] MEDS: BISACODYL 10 MG SUPP PR PRN (18:13)
[2018-07-06 19:54] VITALS: BP 126/74
[2018-07-06] MEDS: ZIPRASIDONE 20MG CAPSULE PO SCH (21:04)
[2018-07-06] MEDS: ACETAMINOPHEN 325 MG TABLET PO PRN (21:05)
[2018-07-07 07:58] VITALS: BP 143/85
[2018-07-07] MEDS: DIVALPROEX 125 MG CAP.SPRINK PO SCH ×2 (08:02→22:01)
[2018-07-07] MEDS: ZIPRASIDONE 20MG CAPSULE PO SCH ×2 (08:02→22:02)
[2018-07-07] MEDS: AMLODIPINE 2.5 MG TABLET PO SCH (08:03)
[2018-07-07] MEDS: TAMSULOSIN 0.4 MG CAP.ER.24H PO SCH (08:03)
[2018-07-07] MEDS: ACETAMINOPHEN 325 MG TABLET PO PRN ×2 (08:03→17:51)
[2018-07-07] MEDS: HYDROcodone/APAP 5/325 TABLET PO PRN ×2 (10:23→20:54)
[2018-07-07 12:06] VITALS: BP 114/71
[2018-07-07 19:41] VITALS: BP 130/68
[2018-07-07] MEDS: LOVASTATIN 10 MG TABLET PO SCH (22:00)
[2018-07-07] MEDS: QUETIAPINE 25MG TABLET PO PRN (22:01)
[2018-07-08] MEDS: AMLODIPINE 2.5 MG TABLET PO SCH (08:25)
[2018-07-08] MEDS: ERGOCALCIFEROL 50,000 UNIT CAPSULE PO SCH (08:25)
[2018-07-08] MEDS: DIVALPROEX 125 MG CAP.SPRINK PO SCH ×2 (08:25→20:15)
[2018-07-08] MEDS: ACETAMINOPHEN 325 MG TABLET PO PRN ×2 (08:25→22:32)
[2018-07-08] MEDS: TAMSULOSIN 0.4 MG CAP.ER.24H PO SCH (08:25)
[2018-07-08] MEDS: ZIPRASIDONE 20MG CAPSULE PO SCH ×2 (08:25→20:16)
[2018-07-08 08:46] VITALS: BP 112/77
[2018-07-08 20:13] VITALS: BP 146/75
[2018-07-08] MEDS: QUETIAPINE 25MG TABLET PO PRN (23:15)
[2018-07-09] MEDS: ACETAMINOPHEN 325 MG TABLET PO PRN ×2 (03:26→07:27)
[2018-07-09] MEDS: HYDROcodone/APAP 5/325 TABLET PO PRN ×2 (03:31→19:33)
[2018-07-09 07:20] VITALS: BP 151/84
[2018-07-09] MEDS: TAMSULOSIN 0.4 MG CAP.ER.24H PO SCH (08:29)
[2018-07-09] MEDS: AMLODIPINE 2.5 MG TABLET PO SCH (08:29)
[2018-07-09] MEDS: DIVALPROEX 125 MG CAP.SPRINK PO SCH ×2 (08:29→20:13)
[2018-07-09] MEDS: POLYETHYLENE GLYCOL 17 GM PACKET PO PRN (08:29)
[2018-07-09] MEDS: ZIPRASIDONE 20MG CAPSULE PO SCH ×2 (08:29→20:12)
[2018-07-09 19:35] VITALS: BP 152/85
[2018-07-09] MEDS: LOVASTATIN 10 MG TABLET PO SCH (20:13)
[2018-07-09] MEDS: QUETIAPINE 25MG TABLET PO PRN (22:26)
[2018-07-10 07:47] VITALS: BP 168/81
[2018-07-10] MEDS: ZIPRASIDONE 20MG CAPSULE PO SCH ×2 (08:33→23:08)
[2018-07-10] MEDS: DOCUSATE 100 MG CAPSULE PO PRN (08:33)
[2018-07-10] MEDS: AMLODIPINE 2.5 MG TABLET PO SCH (08:33)
[2018-07-10] MEDS: TAMSULOSIN 0.4 MG CAP.ER.24H PO SCH (08:33)
[2018-07-10] MEDS: DIVALPROEX 125 MG CAP.SPRINK PO SCH ×2 (08:33→23:08)
[2018-07-10] MEDS: HYDROcodone/APAP 5/325 TABLET PO PRN ×2 (08:35→18:11)
[2018-07-10 19:50] VITALS: BP 108/72
[2018-07-10] MEDS: GABAPENTIN 300 MG CAPSULE PO SCH (23:08)
[2018-07-10] MEDS: QUETIAPINE 25MG TABLET PO PRN (23:09)
[2018-07-10] MEDS: LOVASTATIN 10 MG TABLET PO SCH (23:28)
[2018-07-11 08:04] VITALS: BP_SYST 114; BP_SYST 126; BP_DIAS 66; BP_DIAS 73
[2018-07-11] MEDS: POLYETHYLENE GLYCOL 17 GM PACKET PO PRN (09:23)
[2018-07-11] MEDS: GABAPENTIN 300 MG CAPSULE PO SCH ×3 (09:23→19:35)
[2018-07-11] MEDS: ZIPRASIDONE 20MG CAPSULE PO SCH ×2 (09:23→19:35)
[2018-07-11] MEDS: DOCUSATE 100 MG CAPSULE PO PRN (09:23)
[2018-07-11] MEDS: DIVALPROEX 125 MG CAP.SPRINK PO SCH ×2 (09:23→18:17)
[2018-07-11] MEDS: AMLODIPINE 2.5 MG TABLET PO SCH (09:24)
[2018-07-11] MEDS: ACETAMINOPHEN 325 MG TABLET PO PRN (09:24)
[2018-07-11] MEDS: TAMSULOSIN 0.4 MG CAP.ER.24H PO SCH (09:24)
[2018-07-11 16:59] LABS: BASOPHILS # (AUTO) 0.04 x10^3/uL (0-0.1); BASOPHILS % (AUTO) 1 % (0-1); EOSINOPHILS # (AUTO) 0.17 x10^3/uL (0-0.4); EOSINOPHILS % (AUTO) 2 % (1-7); LYMPHOCYTES # (AUTO) 2.15 x10^3/uL (1-3.4); LYMPHOCYTES % (AUTO) 25 % (22-44); MD NO; MEAN CORPUSCULAR HEMOGLOBIN 32.4 pg (27.0-34.8); MEAN CORPUSCULAR HGB CONC 33.6 g/dL (32.4-35.8); MEAN CORPUSCULAR VOLUME 96.5 fL (80-100); MEAN PLATELET VOLUME 8.7 fL (7.4-10.4); MONOCYTES # (AUTO) 0.88 x10^3/uL (0.2-0.8); MONOCYTES % (AUTO) 10 % (2-9); NEUTROPHILS # (AUTO) 5.41 x10^3/uL (1.8-6.8); NEUTROPHILS % (AUTO) 63 % (42-75); PLATELET COUNT 200 x10^3/uL (130-400); RED BLOOD COUNT 3.92 x10^6/uL (3.82-5.3); RED CELL DISTRIBUTION WIDTH 14.2 % (9.6-15.2)
[2018-07-11 17:07] LABS: ANION GAP 4 mmol/L (5-15); CHLORIDE 111 mmol/L (98-107); CREATININE 0.87 mg/dL (0.55-1.02)
[2018-07-11 17:30] VITALS: BP 120/74
[2018-07-11 18:20] LABS: MICROSCOPIC NOT IND
[2018-07-11] MEDS: LOVASTATIN 10 MG TABLET PO SCH (19:35)
[2018-07-11 19:51] VITALS: BP 121/76
[2018-07-12 08:08] VITALS: BP 130/74
[2018-07-12] MEDS: TAMSULOSIN 0.4 MG CAP.ER.24H PO SCH (08:09)
[2018-07-12] MEDS: ZIPRASIDONE 20MG CAPSULE PO SCH ×2 (08:09→20:58)
[2018-07-12] MEDS: AMLODIPINE 2.5 MG TABLET PO SCH (08:09)
[2018-07-12] MEDS: FUROSEMIDE 20 MG TABLET PO SCH (08:09)
[2018-07-12] MEDS: GABAPENTIN 300 MG CAPSULE PO SCH ×3 (08:09→20:58)
[2018-07-12] MEDS: ACETAMINOPHEN 325 MG TABLET PO PRN ×2 (12:01→23:04)
[2018-07-12 15:07] VITALS: BP 110/74
[2018-07-12] MEDS: DIVALPROEX 125 MG CAP.SPRINK PO SCH (16:14)
[2018-07-12 19:11] VITALS: BP 123/74
[2018-07-12] MEDS: QUETIAPINE 25MG TABLET PO PRN (20:57)
[2018-07-12] MEDS: LOVASTATIN 10 MG TABLET PO SCH (20:57)
[2018-07-13 08:38] VITALS: BP 155/74
[2018-07-13] MEDS: AMLODIPINE 2.5 MG TABLET PO SCH (09:00)
[2018-07-13] MEDS: TAMSULOSIN 0.4 MG CAP.ER.24H PO SCH (09:00)
[2018-07-13] MEDS: FUROSEMIDE 20 MG TABLET PO SCH ×2 (09:00→19:44)
[2018-07-13] MEDS: ZIPRASIDONE 20MG CAPSULE PO SCH ×2 (09:00→19:43)
[2018-07-13] MEDS: GABAPENTIN 300 MG CAPSULE PO SCH ×3 (09:00→19:44)
[2018-07-13 11:40] VITALS: BP 114/75
[2018-07-13] MEDS: ACETAMINOPHEN 325 MG TABLET PO PRN (13:58)
[2018-07-13] MEDS: POLYETHYLENE GLYCOL 17 GM PACKET PO PRN (13:58)
[2018-07-13] MEDS: DOCUSATE 100 MG CAPSULE PO PRN (13:58)
[2018-07-13] MEDS: BISACODYL 10 MG SUPP PR PRN (16:46)
[2018-07-13] MEDS: DIVALPROEX 125 MG CAP.SPRINK PO SCH (17:57)
[2018-07-13 19:29] VITALS: BP 122/79
[2018-07-13] MEDS ORDERED: SENNOSIDES 8.6 MG TABLET PO ONE (19:30)
[2018-07-13] MEDS: QUETIAPINE 25MG TABLET PO PRN (19:43)
[2018-07-13] MEDS: LOVASTATIN 10 MG TABLET PO SCH (19:43)
[2018-07-14 00:55] LABS: MICROSCOPIC NOT IND
[2018-07-14] MEDS ORDERED: MAGNESIUM CITRATE 300ML ORAL SOL PO PRN (01:00)
[2018-07-14 01:10] LABS: CULTURE INDICATED? NO
[2018-07-14 07:17] VITALS: BP 132/77
[2018-07-14] MEDS: TAMSULOSIN 0.4 MG CAP.ER.24H PO SCH (08:55)
[2018-07-14] MEDS: AMLODIPINE 2.5 MG TABLET PO SCH (08:56)
[2018-07-14] MEDS: GABAPENTIN 300 MG CAPSULE PO SCH ×3 (08:56→21:02)
[2018-07-14] MEDS: ZIPRASIDONE 20MG CAPSULE PO SCH ×2 (08:56→21:01)
[2018-07-14] MEDS ORDERED: PINK LADY ENEMA 490 ML BOTTLE PR ONE (10:00)
[2018-07-14] MEDS ORDERED: POLYETHYLENE GLYCOL 17 GM PACKET PO SCH (11:00)
[2018-07-14] MEDS: CEFTRIAXONE 1,000 MG in SODIUM CHLORIDE 0.9% 50 ML IV SCH (11:56)
[2018-07-14 14:44] LABS: BASOPHILS # (AUTO) 0.11 x10^3/uL (0-0.1); BASOPHILS % (AUTO) 1 % (0-1); EOSINOPHILS # (AUTO) 0.13 x10^3/uL (0-0.4); EOSINOPHILS % (AUTO) 1 % (1-7); LYMPHOCYTES # (AUTO) 2.33 x10^3/uL (1-3.4); LYMPHOCYTES % (AUTO) 20 % (22-44); MEAN CORPUSCULAR HGB CONC 33.5 g/dL (32.4-35.8); MEAN CORPUSCULAR VOLUME 95.5 fL (80-100); MEAN PLATELET VOLUME 8.7 fL (7.4-10.4); MONOCYTES # (AUTO) 1.09 x10^3/uL (0.2-0.8); MONOCYTES % (AUTO) 9 % (2-9); NEUTROPHILS # (AUTO) 8.22 x10^3/uL (1.8-6.8); NEUTROPHILS % (AUTO) 69 % (42-75); PLATELET COUNT 192 x10^3/uL (130-400); RED BLOOD COUNT 3.94 x10^6/uL (3.82-5.3); RED CELL DISTRIBUTION WIDTH 13.9 % (9.6-15.2)
[2018-07-14 14:45] LABS: MD NO
[2018-07-14 14:48] LABS: ANION GAP 7 mmol/L (5-15); CALCIUM 8.1 mg/dL (8.5-10.1); CHLORIDE 108 mmol/L (98-107)
[2018-07-14] MEDS: DIVALPROEX 125 MG CAP.SPRINK PO SCH (18:21)
[2018-07-14 19:25] VITALS: BP 114/69
[2018-07-14] MEDS: SODIUM CHLORIDE FLUSH 10ML SYR IVF SCH (21:00)
[2018-07-14] MEDS: LOVASTATIN 10 MG TABLET PO SCH (21:01)
[2018-07-14] MEDS: SENNA/DOCUSATE TABLET PO SCH (21:02)
[2018-07-15] MEDS: SODIUM CHLORIDE FLUSH 10ML SYR IVF SCH ×2 (07:48→19:41)
[2018-07-15] MEDS: ERGOCALCIFEROL 50,000 UNIT CAPSULE PO SCH (07:48)
[2018-07-15 08:43] VITALS: BP 117/71
[2018-07-15] MEDS: SENNA/DOCUSATE TABLET PO SCH ×2 (08:51→19:42)
[2018-07-15] MEDS: AMLODIPINE 2.5 MG TABLET PO SCH (08:51)
[2018-07-15] MEDS: TAMSULOSIN 0.4 MG CAP.ER.24H PO SCH (08:51)
[2018-07-15] MEDS: ZIPRASIDONE 20MG CAPSULE PO SCH ×2 (08:51→19:42)
[2018-07-15] MEDS: GABAPENTIN 300 MG CAPSULE PO SCH ×3 (08:51→19:45)
[2018-07-15] MEDS: CEFTRIAXONE 1,000 MG in SODIUM CHLORIDE 0.9% 50 ML IV SCH (10:49)
[2018-07-15] MEDS: DIVALPROEX 125 MG CAP.SPRINK PO SCH (16:57)
[2018-07-15 19:31] VITALS: BP 125/75
[2018-07-15] MEDS: LOVASTATIN 10 MG TABLET PO SCH (19:54)
[2018-07-16 07:31] VITALS: BP 114/71
[2018-07-16] MEDS: SENNA/DOCUSATE TABLET PO SCH ×2 (08:13→19:51)
[2018-07-16] MEDS: TAMSULOSIN 0.4 MG CAP.ER.24H PO SCH (08:13)
[2018-07-16] MEDS: AMLODIPINE 2.5 MG TABLET PO SCH (08:13)
[2018-07-16] MEDS: ZIPRASIDONE 20MG CAPSULE PO SCH ×2 (08:13→19:52)
[2018-07-16] MEDS: GABAPENTIN 300 MG CAPSULE PO SCH ×3 (08:13→19:51)
[2018-07-16] MEDS: SODIUM CHLORIDE FLUSH 10ML SYR IVF SCH (08:14)
[2018-07-16] MEDS ORDERED: CEFTRIAXONE 1,000 MG in SODIUM CHLORIDE 0.9% 50 ML IV SCH (11:00)
[2018-07-16] MEDS: DIVALPROEX 125 MG CAP.SPRINK PO SCH (16:30)
[2018-07-16 20:01] VITALS: BP 120/75
[2018-07-16] MEDS: LOVASTATIN 10 MG TABLET PO SCH (20:03)
[2018-07-17 07:30] VITALS: BP 109/70
[2018-07-17] MEDS: POLYETHYLENE GLYCOL 17 GM PACKET PO PRN (07:53)
[2018-07-17] MEDS: SENNA/DOCUSATE TABLET PO SCH ×2 (08:16→20:01)
[2018-07-17] MEDS: GABAPENTIN 300 MG CAPSULE PO SCH ×3 (08:16→20:00)
[2018-07-17] MEDS: AMLODIPINE 2.5 MG TABLET PO SCH (08:17)
[2018-07-17] MEDS: TAMSULOSIN 0.4 MG CAP.ER.24H PO SCH (08:17)
[2018-07-17] MEDS: ZIPRASIDONE 20MG CAPSULE PO SCH ×2 (08:17→20:01)
[2018-07-17] MEDS: DIVALPROEX 125 MG CAP.SPRINK PO SCH (17:00)
[2018-07-17] MEDS: QUETIAPINE 25MG TABLET PO PRN (19:21)
[2018-07-17 19:25] VITALS: BP 126/79
[2018-07-17] MEDS: CEFDINIR 300 MG CAPSULE PO SCH (20:00)
[2018-07-17] MEDS: LOVASTATIN 10 MG TABLET PO SCH (20:01)
[2018-07-18 07:30] VITALS: BP 105/66
[2018-07-18] MEDS: ZIPRASIDONE 20MG CAPSULE PO SCH ×2 (09:01→20:02)
[2018-07-18] MEDS: TAMSULOSIN 0.4 MG CAP.ER.24H PO SCH (09:01)
[2018-07-18] MEDS: GABAPENTIN 300 MG CAPSULE PO SCH ×3 (09:01→20:01)
[2018-07-18] MEDS: AMLODIPINE 2.5 MG TABLET PO SCH (09:01)
[2018-07-18] MEDS: CEFDINIR 300 MG CAPSULE PO SCH ×2 (09:01→20:01)
[2018-07-18] MEDS: SENNA/DOCUSATE TABLET PO SCH ×2 (09:01→20:01)
[2018-07-18] MEDS: POLYETHYLENE GLYCOL 17 GM PACKET PO PRN (09:55)
[2018-07-18] MEDS: BISACODYL 10 MG SUPP PR PRN (14:02)
[2018-07-18] MEDS: DIVALPROEX 125 MG CAP.SPRINK PO SCH (16:44)
[2018-07-18 19:33] VITALS: BP 126/79
[2018-07-18] MEDS: LOVASTATIN 10 MG TABLET PO SCH (20:01)
[2018-07-18] MEDS: QUETIAPINE 25MG TABLET PO PRN (21:44)
[2018-07-19 07:50] VITALS: BP 113/74
[2018-07-19] MEDS: TAMSULOSIN 0.4 MG CAP.ER.24H PO SCH (09:07)
[2018-07-19] MEDS: AMLODIPINE 2.5 MG TABLET PO SCH (09:07)
[2018-07-19] MEDS: SENNA/DOCUSATE TABLET PO SCH ×2 (09:08→20:07)
[2018-07-19] MEDS: ZIPRASIDONE 20MG CAPSULE PO SCH ×2 (09:08→20:07)
[2018-07-19] MEDS: GABAPENTIN 300 MG CAPSULE PO SCH ×3 (09:08→21:00)
[2018-07-19] MEDS: CEFDINIR 300 MG CAPSULE PO SCH (09:08)
[2018-07-19] MEDS: DIVALPROEX 125 MG CAP.SPRINK PO SCH (17:12)
[2018-07-19 19:17] VITALS: BP 105/70
[2018-07-19] MEDS: LOVASTATIN 10 MG TABLET PO SCH (20:07)
[2018-07-19] MEDS: QUETIAPINE 25MG TABLET PO PRN (21:24)
[2018-07-20] MEDS: SENNA/DOCUSATE TABLET PO SCH ×2 (09:02→19:58)
[2018-07-20] MEDS: ZIPRASIDONE 20MG CAPSULE PO SCH ×3 (09:02→19:59)
[2018-07-20] MEDS: TAMSULOSIN 0.4 MG CAP.ER.24H PO SCH (09:02)
[2018-07-20] MEDS: GABAPENTIN 300 MG CAPSULE PO SCH ×3 (09:02→19:58)
[2018-07-20] MEDS: AMLODIPINE 2.5 MG TABLET PO SCH (09:02)
[2018-07-20] MEDS: POLYETHYLENE GLYCOL 17 GM PACKET PO PRN (09:02)
[2018-07-20 09:04] VITALS: BP 114/75
[2018-07-20] MEDS: DIVALPROEX 125 MG CAP.SPRINK PO SCH (17:03)
[2018-07-20] MEDS ORDERED: ZIPR20CA2 PO (18:46)
[2018-07-20] MEDS ORDERED: AMLO2.5T3 PO (18:46)
[2018-07-20] MEDS ORDERED: ALPR-475 PO (18:46)
[2018-07-20] MEDS ORDERED: ERGO500017 PO (18:46)
[2018-07-20] MEDS ORDERED: DIVA125C2 PO (18:46)
[2018-07-20] MEDS ORDERED: GABA300C10 PO (18:46)
[2018-07-20 19:13] VITALS: BP 100/65
[2018-07-20] MEDS: LOVASTATIN 10 MG TABLET PO SCH (19:58)
[2018-07-20 20:28] VITALS: BP 115/69
[2018-07-21 07:30] VITALS: BP 100/62
[2018-07-21] MEDS: POLYETHYLENE GLYCOL 17 GM PACKET PO PRN (08:32)
[2018-07-21] MEDS: SENNA/DOCUSATE TABLET PO SCH (08:33)
[2018-07-21] MEDS: AMLODIPINE 2.5 MG TABLET PO SCH (08:33)
[2018-07-21] MEDS: ZIPRASIDONE 20MG CAPSULE PO SCH (08:33)
[2018-07-21] MEDS: TAMSULOSIN 0.4 MG CAP.ER.24H PO SCH (08:33)
[2018-07-21] MEDS: GABAPENTIN 300 MG CAPSULE PO SCH (08:33)
[2018-07-21] MEDS: HYDROcodone/APAP 5/325 TABLET PO PRN (13:03)
== END 2018-07-21 13:30 | disposition hospice, inpatient (51) | DRG 57 ==
LOC: 3E 14:15
PROVIDERS: ADMIT Psychiatry & Neurology Psychosomatic Medicine; ATTEND Psychiatry & Neurology Psychosomatic Medicine
PROC: 4A00X4Z Measurement of Central Nervous Electrical Activity, External Approach (ICD-10-PCS; principal; 2018-07-17)
DX: G30.9 Alzheimer's disease, unspecified (principal); F01.51 Vascular dementia, unspecified severity, with behavioral disturbance; F02.81 Dementia in other diseases classified elsewhere, unspecified severity, with behavioral disturbance; N39.0 Urinary tract infection, site not specified; F06.4 Anxiety disorder due to known physiological condition; I10 Essential (primary) hypertension; E78.5 Hyperlipidemia, unspecified; E55.9 Vitamin D deficiency, unspecified; F41.0 Panic disorder [episodic paroxysmal anxiety]; F41.1 Generalized anxiety disorder; G89.29 Other chronic pain; K59.00 Constipation, unspecified; M19.90 Unspecified osteoarthritis, unspecified site; M41.9 Scoliosis, unspecified; Z91.81 History of falling; Z99.3 Dependence on wheelchair; Z74.01 Bed confinement status; Z51.5 Encounter for palliative care; R32 Unspecified urinary incontinence; Z88.0 Allergy status to penicillin; Z88.8 Allergy status to other drugs, medicaments and biological substances; R26.81 Unsteadiness on feet
CPT/HCPCS: 36415; 71045; 74018; 80048; 80053; 80061; 81001; 81003; 82140; 82607; 84439; 84443; 85025; 86592; 87077; 87086; 87186; 93005; 95819; J0696; J3360; J3486; 92523-GN; G0515-GN